=== PATIENT | female | born 1990 | race African-American/Black ===

== ENCOUNTER 2022-07-03 16:08 | Emergency (ER) | payer MEDICAID ==
[~2022-07-03] VITALS: Ht 121.9 cm; Wt 45.0 kg
[2022-07-03 16:59] LABS: BASOPHILS % 0.4 % (0.0-2.0); EOSINOPHILS % 0.1 % (0.0-5.0); HEMATOCRIT. 36.3 % (36.0-48.0); LYMPHOCYTES % 25.7 % (20.0-50.0); MEAN CORPUSCULAR HEMOGLOBIN 33.8 pg (28.0-32.0); MEAN CORPUSCULAR VOLUME 94.4 fL (81.0-99.0); MEAN PLATELET VOLUME 8.5 fl (7.4-10.4); MONOCYTES % 14.1 % (2.0-8.0); NEUTROPHILS % 59.7 % (40.0-76.0); PLATELET 146 x1000/uL (130-400); RED BLOOD CELL COUNT 3.84 mill/uL (4.2-5.4); RED CELL DISTRIBUTION WIDTH 13.3 % (11.6-14.6)
[2022-07-03 17:04] LABS: CHLORIDE 102 mEq/L (98-107)
[2022-07-03 17:12] LABS: ETHANOL BLOOD < 10 mg/dL
[2022-07-03] MEDS ORDERED: ALBUTEROL (0.5%) 2.5MG/0.5ML NEB HHN ONE (19:30)
[2022-07-03] MEDS ORDERED: ALBUTEROL (0.5%) 2.5MG/0.5ML NEB HHN NR (19:30)
[2022-07-03] MEDS ORDERED: AMLODIPINE 5MG TABLET PO ONE (20:00)
[2022-07-03 21:23] VITALS: BP 149/68
== END 2022-07-04 07:54 | disposition short-term general hospital (02) ==
LOC: ER 16:08
DX: R41.82 Altered mental status, unspecified (principal); I10 Essential (primary) hypertension; G80.9 Cerebral palsy, unspecified; R56.9 Unspecified convulsions; Z74.01 Bed confinement status; Z20.822 Contact with and (suspected) exposure to COVID-19
CPT/HCPCS: 36415; 70450; 71045; 80053; 80320; 82962; 85025; 87426; 93005; 94640; 99285; C9803; Z7610; G0480

== ENCOUNTER 2022-09-09 01:01 | Inpatient (IN) | payer MEDICAID ==
[2022-09-09] VITALS (48 sets, daily range): BP systolic 60–161; BP diastolic 42–106
[~2022-09-09] VITALS: Ht 116.8 cm; Wt 57.6 kg
[2022-09-09] MEDS ORDERED: ACETAMINOPHEN 650MG SUPP PR STA (01:22)
[2022-09-09] MEDS ORDERED: ETOMIDATE 2MG/ML 10ML VIAL IV ONE (01:30)
[2022-09-09] MEDS ORDERED: VANCOMYCIN 1G PREMIX 200 ML IV ONE (01:30)
[2022-09-09] MEDS ORDERED: PROPOFOL 10MG/ML 100ML 100 ML IV ONE (01:30)
[2022-09-09] MEDS ORDERED: PIPERACILLIN/TAZ 3.375G PREMIX 50 ML IV ONE (01:30)
[2022-09-09] MEDS ORDERED: SUCCINYLCHOLINE CHLORIDE 200MG/10ML IV ONE (01:30)
[2022-09-09] MEDS ORDERED: SODIUM CHLORIDE 0.9% 1000ML BAG (SEPSIS BOLUS) IV ONE (01:30)
[2022-09-09 04:53] LABS: HEMATOCRIT. 40.5 % (36.0-48.0); MEAN CORPUSCULAR HEMOGLOBIN 33.2 pg (28.0-32.0); MEAN CORPUSCULAR VOLUME 95.8 fL (81.0-99.0); MEAN PLATELET VOLUME 10.1 fl (7.4-10.4); PLATELET 202 x1000/uL (130-400); RED BLOOD CELL COUNT 4.22 mill/uL (4.2-5.4); RED CELL DISTRIBUTION WIDTH 13.5 % (11.6-14.6)
[2022-09-09 05:02] LABS: CHLORIDE 112 mEq/L (98-107)
[2022-09-09 05:27] LABS: INR 1.2
[2022-09-09 06:13] LABS: CLARITY URINE CLEAR (CLEAR); COLOR URINE ORANGE (YELLOW); KETONES URINE NEGATIVE (NEGATIVE); LEUKOCYTE ESTERASE URINE 1+ (NEGATIVE); NITRITE URINE POSITIVE (NEGATIVE); OCCULT BLOOD URINE NEGATIVE (NEGATIVE); PROTEIN URINE 2+ (NEGATIVE); SPECIFIC GRAVITY URINE 1.026 (1.005-1.030)
[2022-09-09 06:26] LABS: BG BASE EXCESS 7.3 mmol/L (-2.0-2.0); BG CARBOXYHEMOGLOBIN 0.8 % (0.5-1.5); BG DEOXYHEMOGLOBIN 5.4 % (0.0-5.0); BG HCO3 ACT 30.6 mmol/L (22.0-26.0); BG METHEMOGLOBIN 0.3 % (0.0-1.5); BG OXYGEN SATURATION 94.5 % (92.0-98.5); BG OXYHEMOGLOBIN 93.5 % (94.0-97.0); BG PCO2 38.6 mmHg (35.0-45.0); BG PH 7.517 (7.350-7.450); BG PO2 69.4 mmHg (75.0-100.0); BG TOTAL HEMOGLOBIN 14.6 g/dL (12.0-18.0)
[2022-09-09 07:13] LABS: PLATELET ESTIMATE NORMAL
[2022-09-09] MEDS ORDERED: ONDANSETRON HCL 4MG/2ML INJ IV PRN (09:45)
[2022-09-09] MEDS ORDERED: IPRATROPIUM/ALBUTEROL 0.5-3(2.5)MG/3ML NEB HHN PRN (09:45)
[2022-09-09] MEDS ORDERED: LIDOCAINE HCL 1% 10 MG/ML 10ML VIAL ONE (09:51)
[2022-09-09] MEDS ORDERED: PIPERACILLIN/TAZOBACTAM 3.375 G in DEXTROSE 5% WATER 50 ML IV NR (11:00)
[2022-09-09] MEDS ORDERED: KEPPSOL MT (11:36)
[2022-09-09] MEDS ORDERED: OMEP40CA20 PO (11:36)
[2022-09-09] MEDS ORDERED: TIZA-204 MT (11:36)
[2022-09-09] MEDS ORDERED: LISI-186 PO (11:36)
[2022-09-09] MEDS ORDERED: LACT10SO6 MT (11:36)
[2022-09-09] MEDS ORDERED: PHEN20EL PO (11:36)
[2022-09-09] MEDS ORDERED: CARB15DR EACHEYE (11:36)
[2022-09-09] MEDS ORDERED: MONT10TA21 PO (11:36)
[2022-09-09] MEDS ORDERED: DIAZ5TAB4 MT (11:36)
[2022-09-09] MEDS ORDERED: ALBU4TAB6 MT (11:36)
[2022-09-09] MEDS: PIPERACILLIN/TAZOBACTAM 3.375 G in DEXTROSE 5% WATER 50 ML IV SCH ×4 (11:59→22:50)
[2022-09-09] MEDS: VANCOMYCIN 750MG PREMIX 150 ML IV SCH ×2 (12:43→20:34)
[2022-09-09] MEDS: ACETAMINOPHEN 325MG TABLET PO PRN (13:19)
[2022-09-09] MEDS ORDERED: FENTANYL 2500MCG/250ML PMX 250 ML IV PRN (15:00)
[2022-09-09] MEDS ORDERED: DEXTROSE 50% WATER 50ML SYRINGE IV PRN (15:15)
[2022-09-09] MEDS ORDERED: DIAZEPAM 5 MG TABLET PEG PRN (15:15)
[2022-09-09] MEDS ORDERED: MEDICATION NOT ON FORMULARY EA (Lactulose 15 ML) MT PRN (15:15)
[2022-09-09] MEDS: LEVETIRACETAM 500MG/5ML CUP PEG SCH ×2 (15:38→16:41)
[2022-09-09] MEDS: PROPOFOL 10MG/ML 100ML 100 ML IV PRN (15:40)
[2022-09-09] MEDS: ACETAMINOPHEN 650MG/20.3ML UDC PO PRN (16:25)
[2022-09-09] MEDS: TIZANIDINE HCL 2MG TABLET PO SCH (16:42)
[2022-09-09] MEDS ORDERED: MEDICATION NOT ON FORMULARY EA (Tizanidine Hcl 1 TAB) MT SCH (17:00)
[2022-09-09] MEDS ORDERED: CARBOXYMETHYLCELLULOSE SODIUM EACHEYE SCH (17:00)
[2022-09-09] MEDS ORDERED: ALBUTEROL SULFATE MT SCH (17:00)
[2022-09-09] MEDS ORDERED: KCL 20MEQ/100ML PREMIX 100 ML IV NR (17:30)
[2022-09-09] MEDS: INSULIN LISPRO 100 UNITS/ML SUBCUT SCH (17:32)
[2022-09-09] MEDS ORDERED: ENOXAPARIN 40MG/0.4ML SYR SUBCUT SCH (18:00)
[2022-09-09 18:16] LABS: HCG SCREEN NEGATIVE
[2022-09-09] MEDS: PHENYLEPHRINE 100 MG in DEXT 5% WATER 240 ML IV PRN (18:23)
[2022-09-09] MEDS: BLOOD SUGAR DIAGNOSTIC STRIP TEST SCH (18:26)
[2022-09-09 18:30] LABS: PHOSPHORUS 1.6 mg/dL (2.5-4.9); T4 FREE 1.23 ng/dL (0.76-1.46)
[2022-09-09] MEDS: POLYVINYL ALCOHOL OPHTH DROPS 15ML EACHEYE SCH ×2 (18:42→20:34)
[2022-09-09] MEDS: MONTELUKAST SODIUM 10MG TABLET PO SCH (18:44)
[2022-09-09] MEDS: IPRATROPIUM/ALBUTEROL 0.5-3(2.5)MG/3ML NEB HHN SCH (21:00)
[2022-09-09] MEDS: PHENOBARBITAL ELIXIR 30 MG/7.5ML UDC PO SCH (22:51)
[2022-09-10] VITALS (96 sets, daily range): BP systolic 71–161; BP diastolic 41–111
[2022-09-10] MEDS: IPRATROPIUM/ALBUTEROL 0.5-3(2.5)MG/3ML NEB HHN SCH ×3 (00:13→20:39)
[2022-09-10] MEDS: BLOOD SUGAR DIAGNOSTIC STRIP TEST SCH ×4 (00:26→18:00)
[2022-09-10] MEDS: VANCOMYCIN 750MG PREMIX 150 ML IV SCH (04:45)
[2022-09-10] MEDS: PROPOFOL 10MG/ML 100ML 100 ML IV PRN ×3 (04:45→15:15)
[2022-09-10 05:00] LABS: BASOPHILS % 0.1 % (0.0-2.0); EOSINOPHILS % 0.9 % (0.0-5.0); HEMOGLOBIN. 11.6 g/dL (12.0-16.0); LYMPHOCYTES % 9.8 % (20.0-50.0); MEAN CORPUSCULAR VOLUME 96.7 fL (81.0-99.0); MEAN PLATELET VOLUME 10.2 fl (7.4-10.4); MONOCYTES % 5.6 % (2.0-8.0); NEUTROPHILS % 83.6 % (40.0-76.0); PLATELET 76 x1000/uL (130-400); RED BLOOD CELL COUNT 3.52 mill/uL (4.2-5.4); RED CELL DISTRIBUTION WIDTH 13.5 % (11.6-14.6)
[2022-09-10 05:05] LABS: CHLORIDE 114 mEq/L (98-107)
[2022-09-10 05:12] LABS: PHOSPHORUS 1.8 mg/dL (2.5-4.9)
[2022-09-10] MEDS: INSULIN LISPRO 100 UNITS/ML SUBCUT SCH ×4 (06:00→18:00)
[2022-09-10] MEDS: PHENOBARBITAL ELIXIR 30 MG/7.5ML UDC PO SCH ×3 (06:01→22:13)
[2022-09-10] MEDS: PIPERACILLIN/TAZOBACTAM 3.375 G in DEXTROSE 5% WATER 50 ML IV SCH (06:01)
[2022-09-10] MEDS ORDERED: PANTOPRAZOLE 40MG DR TABLET PO SCH (08:30)
[2022-09-10 09:26] LABS: BG BASE EXCESS 7.8 mmol/L (-2.0-2.0); BG CARBOXYHEMOGLOBIN 0.3 % (0.5-1.5); BG DEOXYHEMOGLOBIN 0.7 % (0.0-5.0); BG FRACTION INSPIRED OXYGEN 80; BG HCO3 ACT 32.5 mmol/L (22.0-26.0); BG METHEMOGLOBIN 0.1 % (0.0-1.5); BG OXYGEN SATURATION 99.3 % (92.0-98.5); BG OXYHEMOGLOBIN 98.9 % (94.0-97.0); BG PCO2 45.7 mmHg (35.0-45.0); BG PO2 279.4 mmHg (75.0-100.0); BG SAMPLE SITE LEFT RADIAL; BG TOTAL HEMOGLOBIN 13.1 g/dL (12.0-18.0); BG VENT MODE VENT - AC
[2022-09-10] MEDS: TIZANIDINE HCL 2MG TABLET PO SCH ×2 (09:38→19:10)
[2022-09-10] MEDS: METRONIDAZOLE 500MG TABLET PO SCH ×3 (09:38→21:24)
[2022-09-10] MEDS: LEVETIRACETAM 500MG/5ML CUP PEG SCH ×2 (09:38→19:09)
[2022-09-10] MEDS: LISINOPRIL 5MG TABLET PO SCH (09:39)
[2022-09-10] MEDS: CEFEPIME 1,000 MG in DEXTROSE 5% WATER 50 ML IV SCH ×2 (09:39→21:24)
[2022-09-10] MEDS: POLYVINYL ALCOHOL OPHTH DROPS 15ML EACHEYE SCH ×4 (09:45→21:33)
[2022-09-10] MEDS: POTASSIUM PHOS,M-BASIC-D-BASIC 20 MMOL in DEXT 5% WATER 243.3333 ML IV SCH ×2 (10:51→15:06)
[2022-09-10] MEDS: DOXYCYCLINE 100 MG in DEXT 5% WATER 100 ML IV SCH (12:30)
[2022-09-10] MEDS: MONTELUKAST SODIUM 10MG TABLET PO SCH (19:09)
[2022-09-10] MEDS: LACTULOSE 20G/30ML UDC PO PRN (19:09)
[2022-09-10] MEDS: LANSOPRAZOLE 30MG DR CAPSULE GT SCH (19:10)
[2022-09-10] MEDS: PHENYLEPHRINE 100 MG in DEXT 5% WATER 240 ML IV PRN (22:12)
[2022-09-11] VITALS (94 sets, daily range): BP systolic 79–174; BP diastolic 48–119
[2022-09-11] MEDS: DOXYCYCLINE 100 MG in DEXT 5% WATER 100 ML IV SCH ×2 (00:41→13:04)
[2022-09-11] MEDS: IPRATROPIUM/ALBUTEROL 0.5-3(2.5)MG/3ML NEB HHN SCH ×6 (01:13→20:46)
[2022-09-11 01:28] LABS: TOTAL IRON BINDING CAPACITY 150 ug/dL (250-450)
[2022-09-11 01:50] LABS: INR 1.1; PROTHROMBIN TIME 11.8 sec (9.6-11.0)
[2022-09-11 02:01] LABS: FERRITIN 436 ng/mL (10-291)
[2022-09-11 02:02] LABS: VITAMIN B12 SERUM >2000 pg/mL pg/mL (211-911)
[2022-09-11] MEDS: LANSOPRAZOLE 30MG DR CAPSULE GT SCH (05:26)
[2022-09-11] MEDS: PHENOBARBITAL ELIXIR 30 MG/7.5ML UDC PO SCH ×3 (05:26→21:10)
[2022-09-11] MEDS: METRONIDAZOLE 500MG TABLET PO SCH ×3 (05:26→21:10)
[2022-09-11] MEDS: INSULIN LISPRO 100 UNITS/ML SUBCUT SCH ×4 (05:26→17:59)
[2022-09-11] MEDS: BLOOD SUGAR DIAGNOSTIC STRIP TEST SCH ×4 (05:26→17:59)
[2022-09-11 05:59] LABS: CHLORIDE 111 mEq/L (98-107)
[2022-09-11 06:07] LABS: PHOSPHORUS 1.9 mg/dL (2.5-4.9)
[2022-09-11 08:29] LABS: BG BASE EXCESS 1.7 mmol/L (-2.0-2.0); BG DEOXYHEMOGLOBIN 1.1 % (0.0-5.0); BG FRACTION INSPIRED OXYGEN 60; BG HCO3 ACT 25.1 mmol/L (22.0-26.0); BG METHEMOGLOBIN 0.3 % (0.0-1.5); BG OXYGEN SATURATION 98.9 % (92.0-98.5); BG OXYHEMOGLOBIN 98.6 % (94.0-97.0); BG PCO2 35.3 mmHg (35.0-45.0); BG PO2 183.8 mmHg (75.0-100.0); BG SAMPLE SITE LEFT RADIAL; BG TOTAL HEMOGLOBIN 11.1 g/dL (12.0-18.0); BG VENT MODE VENT - AC
[2022-09-11] MEDS: POLYVINYL ALCOHOL OPHTH DROPS 15ML EACHEYE SCH ×4 (09:45→21:10)
[2022-09-11] MEDS: TIZANIDINE HCL 2MG TABLET PO SCH ×2 (09:46→16:09)
[2022-09-11] MEDS: LEVETIRACETAM 500MG/5ML CUP PEG SCH ×2 (09:46→16:09)
[2022-09-11] MEDS: CEFEPIME 1,000 MG in DEXTROSE 5% WATER 50 ML IV SCH ×2 (09:47→21:10)
[2022-09-11] MEDS: LISINOPRIL 5MG TABLET PO SCH (09:52)
[2022-09-11] MEDS: PROPOFOL 10MG/ML 100ML 100 ML IV PRN ×2 (09:53→23:27)
[2022-09-11] MEDS ORDERED: VANCOMYCIN 1G PREMIX 200 ML IV SCH (11:00)
[2022-09-11] MEDS: MONTELUKAST SODIUM 10MG TABLET PO SCH (18:01)
[2022-09-12] VITALS (94 sets, daily range): BP systolic 71–149; BP diastolic 20–107
[2022-09-12] MEDS: BLOOD SUGAR DIAGNOSTIC STRIP TEST SCH ×5 (00:11→23:22)
[2022-09-12] MEDS: DOXYCYCLINE 100 MG in DEXT 5% WATER 100 ML IV SCH ×3 (00:13→23:23)
[2022-09-12] MEDS: IPRATROPIUM/ALBUTEROL 0.5-3(2.5)MG/3ML NEB HHN SCH ×6 (00:55→21:41)
[2022-09-12 04:58] LABS: BASOPHILS % 0.2 % (0.0-2.0); EOSINOPHILS % 0.2 % (0.0-5.0); HEMATOCRIT. 27.9 % (36.0-48.0); HEMOGLOBIN. 9.8 g/dL (12.0-16.0); LYMPHOCYTES % 9.7 % (20.0-50.0); MEAN CORPUSCULAR HEMOGLOBIN 33.3 pg (28.0-32.0); MEAN CORPUSCULAR VOLUME 94.5 fL (81.0-99.0); MEAN PLATELET VOLUME 10.9 fl (7.4-10.4); MONOCYTES % 8.9 % (2.0-8.0); PLATELET 98 x1000/uL (130-400); RED BLOOD CELL COUNT 2.95 mill/uL (4.2-5.4)
[2022-09-12 05:06] LABS: CHLORIDE 107 mEq/L (98-107)
[2022-09-12 05:16] LABS: PHOSPHORUS 1.5 mg/dL (2.5-4.9)
[2022-09-12] MEDS: LANSOPRAZOLE 30MG DR CAPSULE GT SCH (05:23)
[2022-09-12] MEDS: METRONIDAZOLE 500MG TABLET PO SCH ×3 (05:23→21:20)
[2022-09-12] MEDS: PHENOBARBITAL ELIXIR 30 MG/7.5ML UDC PO SCH ×3 (05:23→21:20)
[2022-09-12] MEDS: INSULIN LISPRO 100 UNITS/ML SUBCUT SCH ×5 (05:24→23:22)
[2022-09-12] MEDS: TIZANIDINE HCL 2MG TABLET PO SCH ×2 (08:14→17:22)
[2022-09-12] MEDS: LISINOPRIL 5MG TABLET PO SCH (08:15)
[2022-09-12] MEDS: LEVETIRACETAM 500MG/5ML CUP PEG SCH ×2 (08:15→17:21)
[2022-09-12] MEDS: POLYVINYL ALCOHOL OPHTH DROPS 15ML EACHEYE SCH ×4 (08:16→21:20)
[2022-09-12] MEDS: METOPROLOL TARTRATE 25MG TABLET PO SCH ×2 (09:00→21:21)
[2022-09-12 09:13] LABS: BG BASE EXCESS 0.7 mmol/L (-2.0-2.0); BG CARBOXYHEMOGLOBIN 0.3 % (0.5-1.5); BG DEOXYHEMOGLOBIN 2.6 % (0.0-5.0); BG HCO3 ACT 24.1 mmol/L (22.0-26.0); BG METHEMOGLOBIN 0.3 % (0.0-1.5); BG OXYGEN SATURATION 97.4 % (92.0-98.5); BG OXYHEMOGLOBIN 96.8 % (94.0-97.0); BG PCO2 33.9 mmHg (35.0-45.0); BG PH 7.469 (7.350-7.450); BG PO2 91.9 mmHg (75.0-100.0); BG SAMPLE SITE LEFT RADIAL; BG TOTAL HEMOGLOBIN 10.7 g/dL (12.0-18.0); BG VENT MODE VENT - AC
[2022-09-12] MEDS: CEFEPIME 1,000 MG in DEXTROSE 5% WATER 50 ML IV SCH ×2 (09:53→21:22)
[2022-09-12] MEDS ORDERED: MAGNESIUM 2 G PREMIX 50 ML IV NR (11:00)
[2022-09-12] MEDS ORDERED: POTASSIUM PHOS,M-BASIC-D-BASIC 10 MMOL in DEXT 5% WATER 246.6667 ML IV NR (11:00)
[2022-09-12] MEDS: MONTELUKAST SODIUM 10MG TABLET PO SCH (18:36)
[2022-09-12] MEDS: ACETAMINOPHEN 325MG TABLET PO PRN (21:21)
[2022-09-13] VITALS (99 sets, daily range): BP systolic 67–154; BP diastolic 16–102
[2022-09-13] MEDS: IPRATROPIUM/ALBUTEROL 0.5-3(2.5)MG/3ML NEB HHN SCH ×6 (00:37→21:12)
[2022-09-13 04:44] LABS: CHLORIDE 102 mEq/L (98-107)
[2022-09-13 04:52] LABS: PHOSPHORUS 1.6 mg/dL (2.5-4.9)
[2022-09-13 04:56] LABS: BASOPHILS % 0.3 % (0.0-2.0); EOSINOPHILS % 0.1 % (0.0-5.0); HEMATOCRIT. 28.1 % (36.0-48.0); HEMOGLOBIN. 10.1 g/dL (12.0-16.0); LYMPHOCYTES % 10.7 % (20.0-50.0); MEAN CORPUSCULAR HEMOGLOBIN 33.3 pg (28.0-32.0); MEAN CORPUSCULAR VOLUME 92.5 fL (81.0-99.0); MEAN PLATELET VOLUME 10.7 fl (7.4-10.4); MONOCYTES % 11.8 % (2.0-8.0); NEUTROPHILS % 77.1 % (40.0-76.0); PLATELET 127 x1000/uL (130-400); RED BLOOD CELL COUNT 3.04 mill/uL (4.2-5.4); RED CELL DISTRIBUTION WIDTH 13.2 % (11.6-14.6)
[2022-09-13] MEDS: BLOOD SUGAR DIAGNOSTIC STRIP TEST SCH ×4 (05:32→23:09)
[2022-09-13] MEDS: INSULIN LISPRO 100 UNITS/ML SUBCUT SCH ×4 (05:32→23:09)
[2022-09-13] MEDS: PHENOBARBITAL ELIXIR 30 MG/7.5ML UDC PO SCH ×3 (05:32→21:15)
[2022-09-13] MEDS: METRONIDAZOLE 500MG TABLET PO SCH ×2 (05:32→13:09)
[2022-09-13] MEDS: TIZANIDINE HCL 2MG TABLET PO SCH ×2 (08:24→17:04)
[2022-09-13] MEDS: LEVETIRACETAM 500MG/5ML CUP PEG SCH ×2 (08:24→17:04)
[2022-09-13] MEDS: PANTOPRAZOLE SODIUM 40 MG/VIAL IV SCH (08:25)
[2022-09-13] MEDS: METOPROLOL TARTRATE 25MG TABLET PO SCH ×2 (08:25→21:00)
[2022-09-13] MEDS: ACETAMINOPHEN 650MG/20.3ML UDC PO PRN ×2 (08:25→17:04)
[2022-09-13] MEDS: POLYVINYL ALCOHOL OPHTH DROPS 15ML EACHEYE SCH ×4 (08:27→21:15)
[2022-09-13] MEDS: CEFEPIME 1,000 MG in DEXTROSE 5% WATER 50 ML IV SCH ×2 (08:51→21:15)
[2022-09-13] MEDS ORDERED: POTASSIUM PHOS,M-BASIC-D-BASIC 10 MMOL in DEXT 5% WATER 246.6667 ML IV NR (10:00)
[2022-09-13 10:25] LABS: BG BASE EXCESS 4.8 mmol/L (-2.0-2.0); BG CARBOXYHEMOGLOBIN 0.3 % (0.5-1.5); BG DEOXYHEMOGLOBIN 1.5 % (0.0-5.0); BG FRACTION INSPIRED OXYGEN 50; BG HCO3 ACT 27.2 mmol/L (22.0-26.0); BG METHEMOGLOBIN 0.3 % (0.0-1.5); BG OXYGEN SATURATION 98.5 % (92.0-98.5); BG OXYHEMOGLOBIN 97.9 % (94.0-97.0); BG PH 7.548 (7.350-7.450); BG SAMPLE SITE RIGHT RADIAL; BG TOTAL HEMOGLOBIN 9.3 g/dL (12.0-18.0); BG VENT MODE VENT - AC
[2022-09-13] MEDS: DOXYCYCLINE 100 MG in DEXT 5% WATER 100 ML IV SCH ×2 (11:22→23:09)
[2022-09-13] MEDS ORDERED: POTASSIUM CHLORIDE INJ 40 MEQ in DEXT 5% WATER 250 ML IV NR (16:00)
[2022-09-13] MEDS: MONTELUKAST SODIUM 10MG TABLET PO SCH (18:09)
[2022-09-14] VITALS (91 sets, daily range): BP systolic 78–152; BP diastolic 44–93
[2022-09-14 05:29] LABS: HEMATOCRIT. 31.5 % (36.0-48.0); HEMOGLOBIN. 11.3 g/dL (12.0-16.0); MEAN CORPUSCULAR HEMOGLOBIN 33.1 pg (28.0-32.0); MEAN PLATELET VOLUME 10.6 fl (7.4-10.4); PLATELET 178 x1000/uL (130-400); RED BLOOD CELL COUNT 3.42 mill/uL (4.2-5.4); RED CELL DISTRIBUTION WIDTH 13.2 % (11.6-14.6)
[2022-09-14] MEDS: INSULIN LISPRO 100 UNITS/ML SUBCUT SCH ×3 (05:39→18:00)
[2022-09-14] MEDS: PHENOBARBITAL ELIXIR 30 MG/7.5ML UDC PO SCH ×3 (05:39→23:08)
[2022-09-14] MEDS: BLOOD SUGAR DIAGNOSTIC STRIP TEST SCH ×3 (05:39→18:11)
[2022-09-14 05:47] LABS: CHLORIDE 99 mEq/L (98-107)
[2022-09-14 05:57] LABS: PHOSPHORUS 1.5 mg/dL (2.5-4.9)
[2022-09-14 08:29] LABS: BG BASE EXCESS 4.2 mmol/L (-2.0-2.0); BG CARBOXYHEMOGLOBIN 0.8 % (0.5-1.5); BG DEOXYHEMOGLOBIN 2.3 % (0.0-5.0); BG FRACTION INSPIRED OXYGEN 35; BG HCO3 ACT 26.2 mmol/L (22.0-26.0); BG METHEMOGLOBIN 0.2 % (0.0-1.5); BG OXYGEN SATURATION 97.7 % (92.0-98.5); BG OXYHEMOGLOBIN 96.7 % (94.0-97.0); BG PCO2 32.1 mmHg (35.0-45.0); BG PO2 96.7 mmHg (75.0-100.0); BG SAMPLE SITE LEFT RADIAL; BG TOTAL HEMOGLOBIN 15.5 g/dL (12.0-18.0); BG VENT MODE VENT - AC
[2022-09-14] MEDS: PANTOPRAZOLE SODIUM 40 MG/VIAL IV SCH (08:29)
[2022-09-14] MEDS: LEVETIRACETAM 500MG/5ML CUP PEG SCH ×2 (08:29→16:57)
[2022-09-14] MEDS: TIZANIDINE HCL 2MG TABLET PO SCH ×2 (08:29→16:57)
[2022-09-14] MEDS: METOPROLOL TARTRATE 25MG TABLET PO SCH (08:30)
[2022-09-14] MEDS ORDERED: MAGNESIUM 2 G PREMIX 50 ML IV NR (08:45)
[2022-09-14] MEDS: POLYVINYL ALCOHOL OPHTH DROPS 15ML EACHEYE SCH ×4 (08:47→23:09)
[2022-09-14] MEDS ORDERED: SODIUM PHOS,M-BASIC-D-BASIC 20 MM in DEXT 5% WATER 243.3333 ML IV NR (08:51)
[2022-09-14] MEDS: CEFEPIME 1,000 MG in DEXTROSE 5% WATER 50 ML IV SCH ×2 (09:26→23:08)
[2022-09-14] MEDS: PHENYLEPHRINE 100 MG in DEXT 5% WATER 240 ML IV PRN (10:01)
[2022-09-14] MEDS ORDERED: SODIUM CHLORIDE 0.9% 1,000 ML IV NR (11:15)
[2022-09-14] MEDS ORDERED: SODIUM CHLORIDE 0.9% 1,000 ML IV SCH (11:30)
[2022-09-14] MEDS: IPRATROPIUM/ALBUTEROL 0.5-3(2.5)MG/3ML NEB HHN SCH ×4 (11:46→23:51)
[2022-09-14 11:57] LABS: PLATELET ESTIMATE NORMAL
[2022-09-14] MEDS: DOXYCYCLINE 100 MG in DEXT 5% WATER 100 ML IV SCH (12:37)
[2022-09-14] MEDS: MONTELUKAST SODIUM 10MG TABLET PO SCH (18:21)
[2022-09-14] MEDS: ENOXAPARIN 40MG/0.4ML SYR SUBCUT SCH (18:21)
[2022-09-15] VITALS (71 sets, daily range): BP systolic 81–163; BP diastolic 48–107
[2022-09-15] MEDS: DOXYCYCLINE 100 MG in DEXT 5% WATER 100 ML IV SCH ×2 (00:49→12:37)
[2022-09-15] MEDS: BLOOD SUGAR DIAGNOSTIC STRIP TEST SCH ×5 (00:49→23:54)
[2022-09-15 05:50] LABS: HEMATOCRIT 29.6 % (36.0-48.0); HEMOGLOBIN 10.4 g/dL (12.0-16.0); MEAN CORPUSCULAR HEMOGLOBIN 32.9 pg (28.0-32.0); MEAN CORPUSCULAR VOLUME 93.2 fL (81.0-99.0); PLATELET 211 x1000/uL (130-400); RED BLOOD CELL COUNT 3.17 mill/uL (4.2-5.4); RED CELL DISTRIBUTION WIDTH 13.3 % (11.6-14.6)
[2022-09-15 05:54] LABS: CHLORIDE 101 mEq/L (98-107)
[2022-09-15] MEDS: INSULIN LISPRO 100 UNITS/ML SUBCUT SCH ×5 (06:00→23:54)
[2022-09-15 06:01] LABS: PHOSPHORUS 2.2 mg/dL (2.5-4.9)
[2022-09-15] MEDS: IPRATROPIUM/ALBUTEROL 0.5-3(2.5)MG/3ML NEB HHN SCH ×3 (08:30→20:25)
[2022-09-15] MEDS: ALBUTEROL 2MG TABLET GT SCH ×2 (09:00→17:00)
[2022-09-15] MEDS: TIZANIDINE HCL 2MG TABLET PO SCH ×2 (09:00→18:57)
[2022-09-15] MEDS: LEVETIRACETAM 500MG/5ML CUP PEG SCH (09:00)
[2022-09-15 09:23] LABS: BG BASE EXCESS 3.3 mmol/L (-2.0-2.0); BG CARBOXYHEMOGLOBIN 0.2 % (0.5-1.5); BG DEOXYHEMOGLOBIN 1.4 % (0.0-5.0); BG FRACTION INSPIRED OXYGEN 35; BG HCO3 ACT 25.5 mmol/L (22.0-26.0); BG METHEMOGLOBIN 0.3 % (0.0-1.5); BG OXYGEN SATURATION 98.6 % (92.0-98.5); BG OXYHEMOGLOBIN 98.1 % (94.0-97.0); BG PCO2 30.8 mmHg (35.0-45.0); BG PH 7.535 (7.350-7.450); BG SAMPLE SITE LEFT RADIAL; BG TOTAL HEMOGLOBIN 11.7 g/dL (12.0-18.0); BG VENT MODE VENT - AC
[2022-09-15] MEDS: PANTOPRAZOLE SODIUM 40 MG/VIAL IV SCH (09:41)
[2022-09-15] MEDS: CEFEPIME 1,000 MG in DEXTROSE 5% WATER 50 ML IV SCH (09:42)
[2022-09-15] MEDS: POLYVINYL ALCOHOL OPHTH DROPS 15ML EACHEYE SCH ×4 (09:43→21:20)
[2022-09-15] MEDS: LEVETIRACETAM 250 MG in SODIUM CHLORIDE 0.9% 100 ML IV SCH ×2 (10:51→21:20)
[2022-09-15] MEDS ORDERED: POTASSIUM PHOS,M-BASIC-D-BASIC 30 MMOL in SODIUM CHLORIDE 0.9% 500 ML IV NR (11:00)
[2022-09-15] MEDS ORDERED: MAGNESIUM 1 G PREMIX 100 ML IV NR (11:00)
[2022-09-15] MEDS ORDERED: DIATR MEGLU/DIATRIZOATE SOLN 30ML PEG NR (11:30)
[2022-09-15] MEDS ORDERED: DIATR MEGLU/DIATRIZOATE SOLN 30ML ONE (12:26)
[2022-09-15] MEDS: ENOXAPARIN 40MG/0.4ML SYR SUBCUT SCH (18:55)
[2022-09-15] MEDS: MONTELUKAST SODIUM 10MG TABLET PO SCH (21:20)
[2022-09-16] VITALS (68 sets, daily range): BP systolic 60–137; BP diastolic 29–104
[2022-09-16] MEDS: IPRATROPIUM/ALBUTEROL 0.5-3(2.5)MG/3ML NEB HHN SCH ×4 (00:18→20:14)
[2022-09-16] MEDS ORDERED: DILTIAZEM HCL 5MG/ML 5ML VIAL IV NR (02:45)
[2022-09-16] MEDS ORDERED: DILTIAZEM HCL 5MG/ML 5ML VIAL IV PRN (03:00)
[2022-09-16] MEDS ORDERED: SODIUM CHLORIDE 0.9% 1,000 ML IV SCH (03:00)
[2022-09-16] MEDS: INSULIN LISPRO 100 UNITS/ML SUBCUT SCH ×3 (06:00→18:00)
[2022-09-16 06:10] LABS: BASOPHILS % 0.4 % (0.0-2.0); EOSINOPHILS % 0.1 % (0.0-5.0); HEMATOCRIT. 27.6 % (36.0-48.0); HEMOGLOBIN. 9.7 g/dL (12.0-16.0); LYMPHOCYTES % 15.7 % (20.0-50.0); MEAN CORPUSCULAR HEMOGLOBIN 33.4 pg (28.0-32.0); MEAN CORPUSCULAR VOLUME 95.2 fL (81.0-99.0); MEAN PLATELET VOLUME 8.8 fl (7.4-10.4); MONOCYTES % 12.3 % (2.0-8.0); NEUTROPHILS % 71.5 % (40.0-76.0); PLATELET 234 x1000/uL (130-400); RED CELL DISTRIBUTION WIDTH 13.8 % (11.6-14.6)
[2022-09-16] MEDS: BLOOD SUGAR DIAGNOSTIC STRIP TEST SCH ×3 (06:15→16:51)
[2022-09-16 06:47] LABS: CHLORIDE 105 mEq/L (98-107)
[2022-09-16] MEDS: BISACODYL 10MG SUPP PR SCH (09:00)
[2022-09-16] MEDS: PANTOPRAZOLE SODIUM 40 MG/VIAL IV SCH (09:37)
[2022-09-16] MEDS: LEVETIRACETAM 250 MG in SODIUM CHLORIDE 0.9% 100 ML IV SCH ×2 (09:37→20:59)
[2022-09-16] MEDS: TIZANIDINE HCL 2MG TABLET PO SCH ×2 (09:37→18:17)
[2022-09-16] MEDS: METOPROLOL TARTRATE 25MG TABLET PO SCH ×2 (09:37→20:56)
[2022-09-16] MEDS: POLYVINYL ALCOHOL OPHTH DROPS 15ML EACHEYE SCH ×4 (09:38→20:56)
[2022-09-16 10:15] LABS: BG BASE EXCESS 1.9 mmol/L (-2.0-2.0); BG CARBOXYHEMOGLOBIN 0.3 % (0.5-1.5); BG DEOXYHEMOGLOBIN 3.1 % (0.0-5.0); BG HCO3 ACT 24.6 mmol/L (22.0-26.0); BG OXYGEN SATURATION 96.9 % (92.0-98.5); BG OXYHEMOGLOBIN 96.6 % (94.0-97.0); BG PCO2 32.3 mmHg (35.0-45.0); BG PH 7.499 (7.350-7.450); BG PO2 92.4 mmHg (75.0-100.0); BG SAMPLE SITE LEFT RADIAL; BG TOTAL HEMOGLOBIN 12.3 g/dL (12.0-18.0); BG VENT MODE VENT - AC
[2022-09-16] MEDS ORDERED: NALOXONE HCL 0.4MG/ML VIAL IV PRN (11:30)
[2022-09-16] MEDS ORDERED: DIAZEPAM 5 MG TABLET PO PRN (11:30)
[2022-09-16 16:21] LABS: PHOSPHORUS 2.8 mg/dL (2.5-4.9)
[2022-09-16] MEDS: PHENYLEPHRINE 100 MG in DEXT 5% WATER 240 ML IV PRN (16:29)
[2022-09-16] MEDS: ALBUTEROL 2MG TABLET GT SCH (17:00)
[2022-09-16] MEDS: MONTELUKAST SODIUM 10MG TABLET PO SCH (18:17)
[2022-09-16] MEDS: ENOXAPARIN 40MG/0.4ML SYR SUBCUT SCH (18:17)
[2022-09-17] VITALS (94 sets, daily range): BP systolic 81–160; BP diastolic 23–109
[2022-09-17] MEDS: IPRATROPIUM/ALBUTEROL 0.5-3(2.5)MG/3ML NEB HHN SCH ×7 (00:25→19:46)
[2022-09-17 05:43] LABS: HEMATOCRIT. 31.1 % (36.0-48.0); HEMOGLOBIN. 10.4 g/dL (12.0-16.0); MEAN CORPUSCULAR HEMOGLOBIN 32.3 pg (28.0-32.0); MEAN CORPUSCULAR VOLUME 96.3 fL (81.0-99.0); MEAN PLATELET VOLUME 9.1 fl (7.4-10.4); PLATELET 411 x1000/uL (130-400); RED BLOOD CELL COUNT 3.23 mill/uL (4.2-5.4); RED CELL DISTRIBUTION WIDTH 14.1 % (11.6-14.6)
[2022-09-17] MEDS: INSULIN LISPRO 100 UNITS/ML SUBCUT SCH ×4 (06:00→18:00)
[2022-09-17 06:01] LABS: CHLORIDE 104 mEq/L (98-107)
[2022-09-17] MEDS: BLOOD SUGAR DIAGNOSTIC STRIP TEST SCH ×4 (06:06→18:00)
[2022-09-17 06:50] LABS: PLATELET ESTIMATE INCREASED
[2022-09-17] MEDS: LORAZEPAM 2MG/ML CPJ IV PRN (06:55)
[2022-09-17] MEDS: PANTOPRAZOLE SODIUM 40 MG/VIAL IV SCH (08:16)
[2022-09-17] MEDS: BISACODYL 10MG SUPP PR SCH (08:16)
[2022-09-17] MEDS: POLYVINYL ALCOHOL OPHTH DROPS 15ML EACHEYE SCH ×4 (08:17→20:48)
[2022-09-17] MEDS: METOPROLOL TARTRATE 25MG TABLET PO SCH ×2 (08:17→20:48)
[2022-09-17 08:34] LABS: BG BASE EXCESS 5.6 mmol/L (-2.0-2.0); BG CARBOXYHEMOGLOBIN 0.5 % (0.5-1.5); BG DEOXYHEMOGLOBIN 1.8 % (0.0-5.0); BG FRACTION INSPIRED OXYGEN 35; BG METHEMOGLOBIN 0.3 % (0.0-1.5); BG OXYGEN SATURATION 98.2 % (92.0-98.5); BG OXYHEMOGLOBIN 97.4 % (94.0-97.0); BG PH 7.501 (7.350-7.450); BG PO2 109.8 mmHg (75.0-100.0); BG SAMPLE SITE LEFT RADIAL; BG TOTAL HEMOGLOBIN 11.2 g/dL (12.0-18.0); BG VENT MODE VENT - AC
[2022-09-17] MEDS: ALBUTEROL 2MG TABLET GT SCH (09:00)
[2022-09-17] MEDS: TIZANIDINE HCL 2MG TABLET PO SCH ×2 (09:06→16:00)
[2022-09-17] MEDS: LEVETIRACETAM 250 MG in SODIUM CHLORIDE 0.9% 100 ML IV SCH (09:06)
[2022-09-17] MEDS: PHENYLEPHRINE 100 MG in DEXT 5% WATER 240 ML IV PRN (13:12)
[2022-09-17] MEDS ORDERED: BISACODYL 10MG SUPP PR PRN (14:30)
[2022-09-17] MEDS: ENOXAPARIN 40MG/0.4ML SYR SUBCUT SCH (18:30)
[2022-09-17] MEDS: MONTELUKAST SODIUM 10MG TABLET PO SCH (20:47)
[2022-09-17] MEDS: LEVETIRACETAM 500MG/5ML CUP PEG SCH (20:48)
[2022-09-18] VITALS (97 sets, daily range): BP systolic 80–153; BP diastolic 45–102
[2022-09-18] MEDS: IPRATROPIUM/ALBUTEROL 0.5-3(2.5)MG/3ML NEB HHN SCH ×5 (00:36→20:41)
[2022-09-18] MEDS: LORAZEPAM 2MG/ML CPJ IV PRN (05:00)
[2022-09-18 05:24] LABS: BASOPHILS % 0.3 % (0.0-2.0); EOSINOPHILS % 0.1 % (0.0-5.0); HEMATOCRIT. 31.2 % (36.0-48.0); HEMOGLOBIN. 10.8 g/dL (12.0-16.0); LYMPHOCYTES % 18.9 % (20.0-50.0); MEAN CORPUSCULAR HEMOGLOBIN 33.3 pg (28.0-32.0); MEAN CORPUSCULAR VOLUME 96.2 fL (81.0-99.0); MEAN PLATELET VOLUME 8.2 fl (7.4-10.4); MONOCYTES % 8.7 % (2.0-8.0); PLATELET 380 x1000/uL (130-400); RED BLOOD CELL COUNT 3.24 mill/uL (4.2-5.4); RED CELL DISTRIBUTION WIDTH 14.2 % (11.6-14.6)
[2022-09-18 05:31] LABS: CHLORIDE 100 mEq/L (98-107)
[2022-09-18] MEDS: INSULIN LISPRO 100 UNITS/ML SUBCUT SCH ×5 (06:00→23:13)
[2022-09-18] MEDS: BLOOD SUGAR DIAGNOSTIC STRIP TEST SCH ×5 (06:30→23:13)
[2022-09-18] MEDS: ALBUTEROL 2MG TABLET GT SCH ×2 (09:00→17:00)
[2022-09-18 09:08] LABS: BG BASE EXCESS 1.3 mmol/L (-2.0-2.0); BG CARBOXYHEMOGLOBIN 0.1 % (0.5-1.5); BG DEOXYHEMOGLOBIN 2.7 % (0.0-5.0); BG HCO3 ACT 25.6 mmol/L (22.0-26.0); BG METHEMOGLOBIN 0.3 % (0.0-1.5); BG OXYGEN SATURATION 97.3 % (92.0-98.5); BG OXYHEMOGLOBIN 96.9 % (94.0-97.0); BG PCO2 39.3 mmHg (35.0-45.0); BG PH 7.432 (7.350-7.450); BG PO2 100.1 mmHg (75.0-100.0); BG SAMPLE SITE LEFT RADIAL; BG TOTAL HEMOGLOBIN 11.1 g/dL (12.0-18.0); BG VENT MODE VENT - AC
[2022-09-18] MEDS: LEVETIRACETAM 500MG/5ML CUP PEG SCH ×2 (09:23→20:33)
[2022-09-18] MEDS: PANTOPRAZOLE SODIUM 40 MG/VIAL IV SCH (09:23)
[2022-09-18] MEDS: TIZANIDINE HCL 2MG TABLET PO SCH ×2 (09:23→17:28)
[2022-09-18] MEDS: METOPROLOL TARTRATE 25MG TABLET PO SCH ×2 (09:25→20:33)
[2022-09-18] MEDS: POLYVINYL ALCOHOL OPHTH DROPS 15ML EACHEYE SCH ×4 (09:49→20:33)
[2022-09-18] MEDS: MORPHINE SULFATE 2 MG/ML CPJ (NOT FOR IM USE) IV PRN ×2 (09:50→17:30)
[2022-09-18 16:22] LABS: BG BASE EXCESS -1.1 mmol/L (-2.0-2.0); BG CARBOXYHEMOGLOBIN 0.3 % (0.5-1.5); BG DEOXYHEMOGLOBIN 2.5 % (0.0-5.0); BG FRACTION INSPIRED OXYGEN 30; BG HCO3 ACT 22.8 mmol/L (22.0-26.0); BG METHEMOGLOBIN 0.2 % (0.0-1.5); BG OXYGEN SATURATION 97.5 % (92.0-98.5); BG PCO2 34.7 mmHg (35.0-45.0); BG PH 7.435 (7.350-7.450); BG PO2 101.5 mmHg (75.0-100.0); BG SAMPLE SITE RIGHT RADIAL; BG TOTAL HEMOGLOBIN 9.9 g/dL (12.0-18.0); BG VENT MODE VENT - SIMV
[2022-09-18] MEDS: ENOXAPARIN 40MG/0.4ML SYR SUBCUT SCH (17:57)
[2022-09-18] MEDS: MONTELUKAST SODIUM 10MG TABLET PO SCH (17:58)
[2022-09-18] MEDS: PHENYLEPHRINE 100 MG in DEXT 5% WATER 240 ML IV PRN (17:58)
[2022-09-18] MEDS: ACETAMINOPHEN 650MG/20.3ML UDC PO PRN (20:33)
[2022-09-18] MEDS: DIPHENHYDRAMINE 50MG/ML VIAL IV PRN (20:34)
[2022-09-19] VITALS (89 sets, daily range): BP systolic 83–151; BP diastolic 28–111
[2022-09-19] MEDS: IPRATROPIUM/ALBUTEROL 0.5-3(2.5)MG/3ML NEB HHN SCH ×5 (00:42→23:43)
[2022-09-19] MEDS: DIPHENHYDRAMINE 50MG/ML VIAL IV PRN (03:11)
[2022-09-19 05:23] LABS: BASOPHILS % 0.3 % (0.0-2.0); EOSINOPHILS % 0.1 % (0.0-5.0); HEMATOCRIT. 27.5 % (36.0-48.0); HEMOGLOBIN. 9.4 g/dL (12.0-16.0); LYMPHOCYTES % 14.5 % (20.0-50.0); MEAN CORPUSCULAR HEMOGLOBIN 33.2 pg (28.0-32.0); MEAN CORPUSCULAR VOLUME 97.5 fL (81.0-99.0); MEAN PLATELET VOLUME 7.8 fl (7.4-10.4); MONOCYTES % 7.2 % (2.0-8.0); NEUTROPHILS % 77.9 % (40.0-76.0); PLATELET 242 x1000/uL (130-400); RED BLOOD CELL COUNT 2.82 mill/uL (4.2-5.4); RED CELL DISTRIBUTION WIDTH 14.6 % (11.6-14.6)
[2022-09-19 05:29] LABS: CHLORIDE 108 mEq/L (98-107)
[2022-09-19] MEDS: INSULIN LISPRO 100 UNITS/ML SUBCUT SCH ×3 (06:00→18:00)
[2022-09-19] MEDS: BLOOD SUGAR DIAGNOSTIC STRIP TEST SCH ×3 (06:50→18:30)
[2022-09-19] MEDS: MORPHINE SULFATE 2 MG/ML CPJ (NOT FOR IM USE) IV PRN ×3 (06:51→16:59)
[2022-09-19] MEDS: LEVETIRACETAM 500MG/5ML CUP PEG SCH ×2 (08:39→21:00)
[2022-09-19] MEDS: PANTOPRAZOLE SODIUM 40 MG/VIAL IV SCH (08:39)
[2022-09-19] MEDS: METOPROLOL TARTRATE 25MG TABLET PO SCH ×2 (08:40→21:00)
[2022-09-19] MEDS: TIZANIDINE HCL 2MG TABLET PO SCH ×2 (08:40→16:58)
[2022-09-19] MEDS: ALBUTEROL 2MG TABLET GT SCH ×4 (09:00→17:00)
[2022-09-19 13:27] LABS: BG BASE EXCESS 1.4 mmol/L (-2.0-2.0); BG CARBOXYHEMOGLOBIN 0.2 % (0.5-1.5); BG DEOXYHEMOGLOBIN 3.6 % (0.0-5.0); BG FRACTION INSPIRED OXYGEN 30; BG HCO3 ACT 25.1 mmol/L (22.0-26.0); BG METHEMOGLOBIN 0.2 % (0.0-1.5); BG OXYGEN SATURATION 96.4 % (92.0-98.5); BG PH 7.461 (7.350-7.450); BG PO2 83.4 mmHg (75.0-100.0); BG SAMPLE SITE LEFT RADIAL; BG TOTAL HEMOGLOBIN 9.2 g/dL (12.0-18.0); BG TOTAL RESPIRATORY RATE 42 b/min; BG VENT MODE VENT - SIMV
[2022-09-19] MEDS: POLYVINYL ALCOHOL OPHTH DROPS 15ML EACHEYE SCH ×4 (13:52→21:00)
[2022-09-19] MEDS: LORAZEPAM 2MG/ML CPJ IV PRN (16:56)
[2022-09-19] MEDS: MONTELUKAST SODIUM 10MG TABLET PO SCH (18:30)
[2022-09-19] MEDS: ENOXAPARIN 40MG/0.4ML SYR SUBCUT SCH (18:30)
[2022-09-20] VITALS (87 sets, daily range): BP systolic 75–157; BP diastolic 32–116
[2022-09-20] MEDS: MORPHINE SULFATE 2 MG/ML CPJ (NOT FOR IM USE) IV PRN ×2 (02:11→14:41)
[2022-09-20] MEDS: IPRATROPIUM/ALBUTEROL 0.5-3(2.5)MG/3ML NEB HHN SCH ×5 (04:10→20:29)
[2022-09-20 05:42] LABS: BASOPHILS % 0.4 % (0.0-2.0); EOSINOPHILS % 0.1 % (0.0-5.0); HEMATOCRIT. 26.5 % (36.0-48.0); HEMOGLOBIN. 9.3 g/dL (12.0-16.0); MEAN CORPUSCULAR HEMOGLOBIN 33.9 pg (28.0-32.0); MEAN CORPUSCULAR VOLUME 96.6 fL (81.0-99.0); MEAN PLATELET VOLUME 7.8 fl (7.4-10.4); NEUTROPHILS % 83.5 % (40.0-76.0); PLATELET 264 x1000/uL (130-400); RED BLOOD CELL COUNT 2.75 mill/uL (4.2-5.4); RED CELL DISTRIBUTION WIDTH 14.1 % (11.6-14.6)
[2022-09-20] MEDS: INSULIN LISPRO 100 UNITS/ML SUBCUT SCH ×4 (06:00→17:59)
[2022-09-20] MEDS: BLOOD SUGAR DIAGNOSTIC STRIP TEST SCH ×4 (06:00→17:59)
[2022-09-20 06:06] LABS: CHLORIDE 104 mEq/L (98-107)
[2022-09-20] MEDS: LEVETIRACETAM 500MG/5ML CUP PEG SCH ×2 (08:26→20:35)
[2022-09-20] MEDS: POLYVINYL ALCOHOL OPHTH DROPS 15ML EACHEYE SCH ×4 (08:26→20:37)
[2022-09-20] MEDS: PANTOPRAZOLE SODIUM 40 MG/VIAL IV SCH (08:26)
[2022-09-20] MEDS: METOPROLOL TARTRATE 25MG TABLET PO SCH ×2 (08:27→20:36)
[2022-09-20] MEDS: ALBUTEROL 2MG TABLET GT SCH ×4 (08:27→17:49)
[2022-09-20] MEDS: TIZANIDINE HCL 2MG TABLET PO SCH ×2 (11:25→17:49)
[2022-09-20] MEDS: LORAZEPAM 2MG/ML CPJ IV PRN (14:38)
[2022-09-20] MEDS: POLYETHYLENE GLYCOL 3350 (17GM) 1 DOSE PACK PO SCH (14:38)
[2022-09-20] MEDS: LACTULOSE 20G/30ML UDC PO PRN (17:49)
[2022-09-20] MEDS: ENOXAPARIN 40MG/0.4ML SYR SUBCUT SCH (18:02)
[2022-09-20] MEDS: MONTELUKAST SODIUM 10MG TABLET PO SCH (18:02)
[2022-09-20] MEDS: ACETAMINOPHEN 650MG/20.3ML UDC PO PRN (20:35)
[2022-09-21] VITALS (49 sets, daily range): BP systolic 95–171; BP diastolic 55–115
[2022-09-21] MEDS: BLOOD SUGAR DIAGNOSTIC STRIP TEST SCH ×4 (00:16→17:22)
[2022-09-21] MEDS: INSULIN LISPRO 100 UNITS/ML SUBCUT SCH ×4 (00:16→17:22)
[2022-09-21] MEDS: IPRATROPIUM/ALBUTEROL 0.5-3(2.5)MG/3ML NEB HHN SCH ×5 (00:37→20:22)
[2022-09-21] MEDS: MORPHINE SULFATE 2 MG/ML CPJ (NOT FOR IM USE) IV PRN (02:55)
[2022-09-21 04:11] LABS: BASOPHILS % 0.5 % (0.0-2.0); EOSINOPHILS % 0.1 % (0.0-5.0); HEMOGLOBIN. 10.1 g/dL (12.0-16.0); LYMPHOCYTES % 10.6 % (20.0-50.0); MEAN CORPUSCULAR VOLUME 97.1 fL (81.0-99.0); MEAN PLATELET VOLUME 7.2 fl (7.4-10.4); MONOCYTES % 6.2 % (2.0-8.0); NEUTROPHILS % 82.6 % (40.0-76.0); PLATELET 285 x1000/uL (130-400); RED BLOOD CELL COUNT 2.98 mill/uL (4.2-5.4); RED CELL DISTRIBUTION WIDTH 15.1 % (11.6-14.6)
[2022-09-21 04:42] LABS: CHLORIDE 107 mEq/L (98-107)
[2022-09-21] MEDS: LORAZEPAM 2MG/ML CPJ IV PRN ×2 (06:44→09:38)
[2022-09-21 08:36] LABS: BG BASE EXCESS 1.6 mmol/L (-2.0-2.0); BG CARBOXYHEMOGLOBIN 0.3 % (0.5-1.5); BG DEOXYHEMOGLOBIN 3.3 % (0.0-5.0); BG HCO3 ACT 24.7 mmol/L (22.0-26.0); BG METHEMOGLOBIN 0.3 % (0.0-1.5); BG OXYGEN SATURATION 96.7 % (92.0-98.5); BG OXYHEMOGLOBIN 96.1 % (94.0-97.0); BG PCO2 33.1 mmHg (35.0-45.0); BG PH 7.491 (7.350-7.450); BG PO2 87.2 mmHg (75.0-100.0); BG SAMPLE SITE LEFT RADIAL; BG TOTAL HEMOGLOBIN 9.2 g/dL (12.0-18.0); BG VENT MODE VENT - AC
[2022-09-21] MEDS: POLYVINYL ALCOHOL OPHTH DROPS 15ML EACHEYE SCH ×4 (08:54→21:28)
[2022-09-21] MEDS: PANTOPRAZOLE SODIUM 40 MG/VIAL IV SCH (08:55)
[2022-09-21] MEDS: ALBUTEROL 2MG TABLET GT SCH ×2 (08:55→16:12)
[2022-09-21] MEDS: LEVETIRACETAM 500MG/5ML CUP PEG SCH ×2 (08:55→21:00)
[2022-09-21] MEDS: POLYETHYLENE GLYCOL 3350 (17GM) 1 DOSE PACK PO SCH (08:56)
[2022-09-21] MEDS: METOPROLOL TARTRATE 25MG TABLET PO SCH ×2 (08:56→21:00)
[2022-09-21] MEDS: TIZANIDINE HCL 2MG TABLET PO SCH ×2 (08:57→16:12)
[2022-09-21] MEDS: DEXT 5%/0.45% NACL 1000ML 1,000 ML IV SCH ×2 (10:11→23:43)
[2022-09-21] MEDS: ENOXAPARIN 40MG/0.4ML SYR SUBCUT SCH (17:22)
[2022-09-21] MEDS: MONTELUKAST SODIUM 10MG TABLET PO SCH ×2 (19:30→19:38)
[2022-09-22] VITALS (39 sets, daily range): BP systolic 89–162; BP diastolic 49–110
[2022-09-22] MEDS: IPRATROPIUM/ALBUTEROL 0.5-3(2.5)MG/3ML NEB HHN SCH ×5 (00:08→20:32)
[2022-09-22] MEDS: BLOOD SUGAR DIAGNOSTIC STRIP TEST SCH ×3 (00:14→11:32)
[2022-09-22] MEDS: LORAZEPAM 2MG/ML CPJ IV PRN ×4 (00:57→15:41)
[2022-09-22 05:22] LABS: CHLORIDE 107 mEq/L (98-107)
[2022-09-22 05:39] LABS: BASOPHILS % 0.4 % (0.0-2.0); EOSINOPHILS % 0.2 % (0.0-5.0); HEMOGLOBIN. 8.7 g/dL (12.0-16.0); LYMPHOCYTES % 12.4 % (20.0-50.0); MEAN CORPUSCULAR HEMOGLOBIN 33.7 pg (28.0-32.0); MEAN CORPUSCULAR VOLUME 97.2 fL (81.0-99.0); MEAN PLATELET VOLUME 8.2 fl (7.4-10.4); MONOCYTES % 7.5 % (2.0-8.0); NEUTROPHILS % 79.5 % (40.0-76.0); PLATELET 246 x1000/uL (130-400); RED BLOOD CELL COUNT 2.57 mill/uL (4.2-5.4); RED CELL DISTRIBUTION WIDTH 14.9 % (11.6-14.6)
[2022-09-22] MEDS: INSULIN LISPRO 100 UNITS/ML SUBCUT SCH ×3 (06:00→11:32)
[2022-09-22] MEDS: PANTOPRAZOLE SODIUM 40 MG/VIAL IV SCH (08:23)
[2022-09-22] MEDS: LEVETIRACETAM 500MG/5ML CUP PEG SCH (08:24)
[2022-09-22] MEDS: TIZANIDINE HCL 2MG TABLET PO SCH ×2 (08:24→16:29)
[2022-09-22] MEDS: POLYETHYLENE GLYCOL 3350 (17GM) 1 DOSE PACK PO SCH (08:24)
[2022-09-22] MEDS: ALBUTEROL 2MG TABLET GT SCH ×2 (08:24→16:29)
[2022-09-22] MEDS: POLYVINYL ALCOHOL OPHTH DROPS 15ML EACHEYE SCH ×4 (08:25→21:37)
[2022-09-22] MEDS: METOPROLOL TARTRATE 25MG TABLET PO SCH ×2 (08:26→21:36)
[2022-09-22 08:55] LABS: BG BASE EXCESS 1.8 mmol/L (-2.0-2.0); BG CARBOXYHEMOGLOBIN 0.3 % (0.5-1.5); BG DEOXYHEMOGLOBIN 2.4 % (0.0-5.0); BG FRACTION INSPIRED OXYGEN 30; BG HCO3 ACT 25.2 mmol/L (22.0-26.0); BG METHEMOGLOBIN 0.4 % (0.0-1.5); BG OXYGEN SATURATION 97.6 % (92.0-98.5); BG OXYHEMOGLOBIN 96.9 % (94.0-97.0); BG PH 7.476 (7.350-7.450); BG PO2 99.4 mmHg (75.0-100.0); BG SAMPLE SITE LEFT RADIAL; BG TOTAL HEMOGLOBIN 9.6 g/dL (12.0-18.0); BG VENT MODE VENT - AC
[2022-09-22] MEDS: DEXT 5%/0.45% NACL 1000ML 1,000 ML IV SCH (13:12)
[2022-09-22] MEDS ORDERED: DIATR MEGLU/DIATRIZOATE SOLN 30ML ONE (16:22)
[2022-09-22] MEDS ORDERED: DIATR MEGLU/DIATRIZOATE SOLN 30ML PO NR (16:30)
[2022-09-22] MEDS: LEVETIRACETAM 750 MG in SODIUM CHLORIDE 0.9% 100 ML IV SCH (21:35)
[2022-09-23] VITALS (37 sets, daily range): BP systolic 83–157; BP diastolic 22–112
[2022-09-23] MEDS: IPRATROPIUM/ALBUTEROL 0.5-3(2.5)MG/3ML NEB HHN SCH ×4 (01:06→20:31)
[2022-09-23] MEDS: DEXT 5%/0.45% NACL 1000ML 1,000 ML IV SCH (04:40)
[2022-09-23] MEDS: LORAZEPAM 2MG/ML CPJ IV PRN ×2 (04:40→23:16)
[2022-09-23] MEDS: BLOOD SUGAR DIAGNOSTIC STRIP TEST SCH ×4 (06:00→17:21)
[2022-09-23 06:08] LABS: BASOPHILS % 0.6 % (0.0-2.0); EOSINOPHILS % 0.1 % (0.0-5.0); HEMATOCRIT. 29.7 % (36.0-48.0); HEMOGLOBIN. 10.2 g/dL (12.0-16.0); LYMPHOCYTES % 14.6 % (20.0-50.0); MEAN CORPUSCULAR HEMOGLOBIN 33.7 pg (28.0-32.0); MEAN CORPUSCULAR VOLUME 98.2 fL (81.0-99.0); MONOCYTES % 7.2 % (2.0-8.0); NEUTROPHILS % 77.5 % (40.0-76.0); RED BLOOD CELL COUNT 3.02 mill/uL (4.2-5.4); RED CELL DISTRIBUTION WIDTH 15.6 % (11.6-14.6)
[2022-09-23 06:14] LABS: CHLORIDE 104 mEq/L (98-107)
[2022-09-23] MEDS: INSULIN LISPRO 100 UNITS/ML SUBCUT SCH ×3 (07:00→17:21)
[2022-09-23] MEDS ORDERED: LIDOCAINE HCL 1%/EPI 1:200,000 30 ML VIAL ONE (07:22)
[2022-09-23] MEDS ORDERED: VECURONIUM BROMIDE 10 MG/VIAL IV ONE (08:28)
[2022-09-23] MEDS: ALBUTEROL 2MG TABLET GT SCH ×2 (09:00→17:00)
[2022-09-23] MEDS: METOPROLOL TARTRATE 25MG TABLET PO SCH ×2 (10:04→20:55)
[2022-09-23] MEDS: LEVETIRACETAM 750 MG in SODIUM CHLORIDE 0.9% 100 ML IV SCH ×2 (10:04→20:53)
[2022-09-23] MEDS: POLYETHYLENE GLYCOL 3350 (17GM) 1 DOSE PACK PO SCH (10:04)
[2022-09-23] MEDS: PANTOPRAZOLE SODIUM 40 MG/VIAL IV SCH (10:04)
[2022-09-23] MEDS: TIZANIDINE HCL 2MG TABLET PO SCH ×2 (10:04→17:25)
[2022-09-23] MEDS: POLYVINYL ALCOHOL OPHTH DROPS 15ML EACHEYE SCH ×4 (10:12→20:53)
[2022-09-23 11:32] LABS: PLATELET 298 x1000/uL (130-400)
[2022-09-23] MEDS: METOCLOPRAMIDE HCL 10MG/2ML VIAL IV SCH (17:25)
[2022-09-23] MEDS: ENOXAPARIN 40MG/0.4ML SYR SUBCUT SCH (17:26)
[2022-09-23] MEDS: MONTELUKAST SODIUM 10MG TABLET PO SCH (19:00)
[2022-09-24] VITALS (51 sets, daily range): BP systolic 95–169; BP diastolic 41–96
[2022-09-24] MEDS: METOCLOPRAMIDE HCL 10MG/2ML VIAL IV SCH ×4 (00:47→17:49)
[2022-09-24] MEDS: BLOOD SUGAR DIAGNOSTIC STRIP TEST SCH ×5 (00:47→23:59)
[2022-09-24] MEDS: IPRATROPIUM/ALBUTEROL 0.5-3(2.5)MG/3ML NEB HHN SCH ×6 (00:47→20:40)
[2022-09-24 05:37] LABS: HEMATOCRIT. 27.1 % (36.0-48.0); HEMOGLOBIN. 9.5 g/dL (12.0-16.0); MEAN CORPUSCULAR HEMOGLOBIN 33.5 pg (28.0-32.0); MEAN CORPUSCULAR VOLUME 95.9 fL (81.0-99.0); MEAN PLATELET VOLUME 7.5 fl (7.4-10.4); PLATELET 260 x1000/uL (130-400); RED BLOOD CELL COUNT 2.82 mill/uL (4.2-5.4); RED CELL DISTRIBUTION WIDTH 15.2 % (11.6-14.6)
[2022-09-24] MEDS: INSULIN LISPRO 100 UNITS/ML SUBCUT SCH ×4 (06:00→17:04)
[2022-09-24 06:09] LABS: CHLORIDE 103 mEq/L (98-107)
[2022-09-24] MEDS: LORAZEPAM 2MG/ML CPJ IV PRN (06:19)
[2022-09-24 07:55] LABS: PLATELET ESTIMATE NORMAL
[2022-09-24] MEDS: METOPROLOL TARTRATE 25MG TABLET PO SCH ×2 (08:02→21:01)
[2022-09-24] MEDS: POLYETHYLENE GLYCOL 3350 (17GM) 1 DOSE PACK PO SCH (08:02)
[2022-09-24] MEDS: PANTOPRAZOLE SODIUM 40 MG/VIAL IV SCH (08:02)
[2022-09-24] MEDS: TIZANIDINE HCL 2MG TABLET PO SCH ×2 (08:02→17:48)
[2022-09-24] MEDS: LEVETIRACETAM 750 MG in SODIUM CHLORIDE 0.9% 100 ML IV SCH ×2 (08:03→21:01)
[2022-09-24] MEDS: POLYVINYL ALCOHOL OPHTH DROPS 15ML EACHEYE SCH ×4 (08:03→21:01)
[2022-09-24] MEDS: KCL 20MEQ/100ML PREMIX 100 ML IV SCH ×2 (10:13→12:44)
[2022-09-24] MEDS: MONTELUKAST SODIUM 10MG TABLET PO SCH (17:48)
[2022-09-24] MEDS: ENOXAPARIN 40MG/0.4ML SYR SUBCUT SCH (17:48)
[2022-09-25] VITALS (21 sets, daily range): BP systolic 86–158; BP diastolic 43–101
[2022-09-25] MEDS: LORAZEPAM 2MG/ML CPJ IV PRN ×3 (00:15→06:58)
[2022-09-25] MEDS: METOCLOPRAMIDE HCL 10MG/2ML VIAL IV SCH ×4 (00:15→17:14)
[2022-09-25] MEDS: IPRATROPIUM/ALBUTEROL 0.5-3(2.5)MG/3ML NEB HHN SCH ×4 (00:33→12:51)
[2022-09-25] MEDS: BLOOD SUGAR DIAGNOSTIC STRIP TEST SCH ×3 (05:34→17:16)
[2022-09-25] MEDS: INSULIN LISPRO 100 UNITS/ML SUBCUT SCH ×4 (05:34→18:00)
[2022-09-25 08:10] LABS: BASOPHILS % 0.7 % (0.0-2.0); HEMATOCRIT. 31.2 % (36.0-48.0); HEMOGLOBIN. 10.2 g/dL (12.0-16.0); LYMPHOCYTES % 11.1 % (20.0-50.0); MEAN CORPUSCULAR VOLUME 100.7 fL (81.0-99.0); MONOCYTES % 8.6 % (2.0-8.0); NEUTROPHILS % 78.6 % (40.0-76.0); PLATELET 177 x1000/uL (130-400); RED BLOOD CELL COUNT 3.09 mill/uL (4.2-5.4); RED CELL DISTRIBUTION WIDTH 16.1 % (11.6-14.6)
[2022-09-25 08:27] LABS: CHLORIDE 107 mEq/L (98-107)
[2022-09-25] MEDS: POLYVINYL ALCOHOL OPHTH DROPS 15ML EACHEYE SCH ×4 (08:31→22:23)
[2022-09-25] MEDS: PANTOPRAZOLE SODIUM 40 MG/VIAL IV SCH (08:31)
[2022-09-25] MEDS: METOPROLOL TARTRATE 25MG TABLET PO SCH ×2 (08:35→21:55)
[2022-09-25] MEDS: POLYETHYLENE GLYCOL 3350 (17GM) 1 DOSE PACK PO SCH (08:36)
[2022-09-25] MEDS: TIZANIDINE HCL 2MG TABLET PO SCH ×2 (08:36→17:15)
[2022-09-25] MEDS: LEVETIRACETAM 750 MG in SODIUM CHLORIDE 0.9% 100 ML IV SCH ×2 (10:06→21:54)
[2022-09-25] MEDS: ENOXAPARIN 40MG/0.4ML SYR SUBCUT SCH (17:15)
[2022-09-25] MEDS: IPRATROPIUM BROMIDE (0.02%) 0.5MG/2.5ML NEB HHN SCH (21:23)
[2022-09-25] MEDS: MONTELUKAST SODIUM 10MG TABLET PO SCH (21:53)
[2022-09-26] VITALS (10 sets, daily range): BP systolic 124–153; BP diastolic 79–96
[2022-09-26] MEDS: LORAZEPAM 2MG/ML CPJ IV PRN ×2 (00:38→22:58)
[2022-09-26] MEDS: METOCLOPRAMIDE HCL 10MG/2ML VIAL IV SCH ×4 (00:53→17:44)
[2022-09-26] MEDS: IPRATROPIUM BROMIDE (0.02%) 0.5MG/2.5ML NEB HHN SCH ×4 (02:36→19:28)
[2022-09-26] MEDS: INSULIN LISPRO 100 UNITS/ML SUBCUT SCH ×4 (06:00→17:36)
[2022-09-26] MEDS: BLOOD SUGAR DIAGNOSTIC STRIP TEST SCH ×4 (06:39→17:37)
[2022-09-26] MEDS: POLYETHYLENE GLYCOL 3350 (17GM) 1 DOSE PACK PO SCH (08:50)
[2022-09-26] MEDS: TIZANIDINE HCL 2MG TABLET PO SCH ×2 (08:50→17:36)
[2022-09-26] MEDS: PANTOPRAZOLE SODIUM 40 MG/VIAL IV SCH (08:52)
[2022-09-26] MEDS: METOPROLOL TARTRATE 25MG TABLET PO SCH ×2 (08:52→22:57)
[2022-09-26] MEDS: LEVETIRACETAM 750 MG in SODIUM CHLORIDE 0.9% 100 ML IV SCH ×2 (08:52→22:56)
[2022-09-26] MEDS: POLYVINYL ALCOHOL OPHTH DROPS 15ML EACHEYE SCH ×4 (08:53→22:56)
[2022-09-26 09:10] LABS: CHLORIDE 102 mEq/L (98-107)
[2022-09-26 09:14] LABS: HEMOGLOBIN. 10.1 g/dL (12.0-16.0); MEAN CORPUSCULAR HEMOGLOBIN 32.9 pg (28.0-32.0); MEAN CORPUSCULAR VOLUME 94.8 fL (81.0-99.0); MEAN PLATELET VOLUME 7.1 fl (7.4-10.4); PLATELET 282 x1000/uL (130-400); RED BLOOD CELL COUNT 3.06 mill/uL (4.2-5.4); RED CELL DISTRIBUTION WIDTH 14.5 % (11.6-14.6)
[2022-09-26 14:37] LABS: PLATELET ESTIMATE NORMAL
[2022-09-26] MEDS: ENOXAPARIN 40MG/0.4ML SYR SUBCUT SCH (17:35)
[2022-09-26] MEDS: MONTELUKAST SODIUM 10MG TABLET PO SCH (23:01)
[2022-09-27] VITALS (12 sets, daily range): BP systolic 116–156; BP diastolic 74–102
[2022-09-27] MEDS: BLOOD SUGAR DIAGNOSTIC STRIP TEST SCH ×5 (00:27→23:51)
[2022-09-27] MEDS: METOCLOPRAMIDE HCL 10MG/2ML VIAL IV SCH ×5 (00:50→23:48)
[2022-09-27] MEDS: IPRATROPIUM BROMIDE (0.02%) 0.5MG/2.5ML NEB HHN SCH ×4 (01:50→21:15)
[2022-09-27 05:53] LABS: CHLORIDE 106 mEq/L (98-107)
[2022-09-27] MEDS: INSULIN LISPRO 100 UNITS/ML SUBCUT SCH ×5 (06:00→23:51)
[2022-09-27 08:25] LABS: HEMATOCRIT. 30.1 % (36.0-48.0); HEMOGLOBIN. 10.1 g/dL (12.0-16.0); MEAN CORPUSCULAR VOLUME 94.9 fL (81.0-99.0); RED BLOOD CELL COUNT 3.17 mill/uL (4.2-5.4); RED CELL DISTRIBUTION WIDTH 14.4 % (11.6-14.6)
[2022-09-27] MEDS: LEVETIRACETAM 750 MG in SODIUM CHLORIDE 0.9% 100 ML IV SCH ×2 (09:24→20:54)
[2022-09-27] MEDS: POLYVINYL ALCOHOL OPHTH DROPS 15ML EACHEYE SCH ×4 (09:24→20:02)
[2022-09-27] MEDS: POLYETHYLENE GLYCOL 3350 (17GM) 1 DOSE PACK PO SCH (09:24)
[2022-09-27] MEDS: PANTOPRAZOLE SODIUM 40 MG/VIAL IV SCH (09:25)
[2022-09-27] MEDS: METOPROLOL TARTRATE 25MG TABLET PO SCH ×2 (09:26→20:02)
[2022-09-27] MEDS: TIZANIDINE HCL 2MG TABLET PO SCH ×2 (09:27→17:00)
[2022-09-27 09:59] LABS: PLATELET ESTIMATE NORMAL
[2022-09-27] MEDS ORDERED: SODIUM CHLORIDE 0.9% 1,000 ML IV SCH (18:15)
[2022-09-27] MEDS: ENOXAPARIN 40MG/0.4ML SYR SUBCUT SCH (18:42)
[2022-09-27] MEDS: MONTELUKAST SODIUM 10MG TABLET PO SCH (19:00)
[2022-09-27] MEDS: AMLODIPINE 2.5MG TABLET PO SCH (20:03)
[2022-09-28] VITALS (10 sets, daily range): BP systolic 131–147; BP diastolic 80–108
[2022-09-28] MEDS: DEXT 5%/0.9% NACL 1,000 ML IV SCH ×2 (00:33→21:05)
[2022-09-28] MEDS: IPRATROPIUM BROMIDE (0.02%) 0.5MG/2.5ML NEB HHN SCH ×4 (01:12→21:20)
[2022-09-28] MEDS: METOCLOPRAMIDE HCL 10MG/2ML VIAL IV SCH ×3 (05:17→18:50)
[2022-09-28] MEDS: BLOOD SUGAR DIAGNOSTIC STRIP TEST SCH ×4 (05:18→23:50)
[2022-09-28] MEDS: INSULIN LISPRO 100 UNITS/ML SUBCUT SCH ×3 (05:18→18:00)
[2022-09-28] MEDS: METOPROLOL TARTRATE 25MG TABLET PO SCH ×2 (09:00→21:00)
[2022-09-28] MEDS: PANTOPRAZOLE SODIUM 40 MG/VIAL IV SCH (09:00)
[2022-09-28] MEDS: AMLODIPINE 2.5MG TABLET PO SCH (09:00)
[2022-09-28] MEDS: POLYETHYLENE GLYCOL 3350 (17GM) 1 DOSE PACK PO SCH (09:00)
[2022-09-28] MEDS: TIZANIDINE HCL 2MG TABLET PO SCH ×2 (09:00→17:00)
[2022-09-28] MEDS: LEVETIRACETAM 750 MG in SODIUM CHLORIDE 0.9% 100 ML IV SCH ×2 (10:21→21:05)
[2022-09-28] MEDS: POLYVINYL ALCOHOL OPHTH DROPS 15ML EACHEYE SCH ×4 (10:22→21:06)
[2022-09-28] MEDS: AMLODIPINE 5MG TABLET PO SCH ×2 (11:00→21:00)
[2022-09-28] MEDS: ENOXAPARIN 40MG/0.4ML SYR SUBCUT SCH (18:53)
[2022-09-28] MEDS: MONTELUKAST SODIUM 10MG TABLET PO SCH (19:00)
[2022-09-28] MEDS ORDERED: LORAZEPAM 2MG/ML CPJ IM PRN (23:45)
[2022-09-28] MEDS ORDERED: LORAZEPAM 2MG/ML CPJ IV PRN (23:45)
[2022-09-29] VITALS (13 sets, daily range): BP systolic 131–153; BP diastolic 79–106
[2022-09-29] MEDS ORDERED: LORAZEPAM 2MG/ML CPJ IV PRN
[2022-09-29] MEDS: IPRATROPIUM BROMIDE (0.02%) 0.5MG/2.5ML NEB HHN SCH ×4 (01:51→20:16)
[2022-09-29] MEDS: BLOOD SUGAR DIAGNOSTIC STRIP TEST SCH ×4 (05:39→23:50)
[2022-09-29] MEDS: INSULIN LISPRO 100 UNITS/ML SUBCUT SCH ×5 (05:48→23:59)
[2022-09-29] MEDS: METOCLOPRAMIDE HCL 10MG/2ML VIAL IV SCH ×5 (05:49→23:50)
[2022-09-29] MEDS: LORAZEPAM 2MG/ML CPJ IV PRN ×2 (05:57)
[2022-09-29 07:45] LABS: BASOPHILS % 0.6 % (0.0-2.0); EOSINOPHILS % 0.3 % (0.0-5.0); HEMATOCRIT. 28.2 % (36.0-48.0); HEMOGLOBIN. 9.8 g/dL (12.0-16.0); LYMPHOCYTES % 13.9 % (20.0-50.0); MEAN CORPUSCULAR HEMOGLOBIN 32.8 pg (28.0-32.0); MEAN CORPUSCULAR VOLUME 94.1 fL (81.0-99.0); MEAN PLATELET VOLUME 7.2 fl (7.4-10.4); MONOCYTES % 12.3 % (2.0-8.0); NEUTROPHILS % 72.9 % (40.0-76.0); PLATELET 217 x1000/uL (130-400)
[2022-09-29 08:01] LABS: CHLORIDE 109 mEq/L (98-107)
[2022-09-29] MEDS: PANTOPRAZOLE SODIUM 40 MG/VIAL IV SCH (08:45)
[2022-09-29] MEDS: POLYVINYL ALCOHOL OPHTH DROPS 15ML EACHEYE SCH ×4 (08:46→20:38)
[2022-09-29] MEDS: METOPROLOL TARTRATE 25MG TABLET PO SCH ×2 (09:00→20:26)
[2022-09-29] MEDS: TIZANIDINE HCL 2MG TABLET PO SCH ×2 (09:00→17:00)
[2022-09-29] MEDS: POLYETHYLENE GLYCOL 3350 (17GM) 1 DOSE PACK PO SCH (09:00)
[2022-09-29] MEDS: AMLODIPINE 5MG TABLET PO SCH ×2 (09:00→20:27)
[2022-09-29] MEDS: LEVETIRACETAM 750 MG in SODIUM CHLORIDE 0.9% 100 ML IV SCH ×2 (09:24→21:16)
[2022-09-29] MEDS: METOPROLOL TARTRATE 5MG/5ML VIAL IV SCH ×2 (11:24→17:16)
[2022-09-29] MEDS: KCL 20MEQ/100ML PREMIX 100 ML IV SCH ×2 (11:27→13:02)
[2022-09-29] MEDS: ENOXAPARIN 40MG/0.4ML SYR SUBCUT SCH (17:15)
[2022-09-29] MEDS: DEXT 5%/0.9% NACL 1,000 ML IV SCH (17:16)
[2022-09-29] MEDS: MONTELUKAST SODIUM 10MG TABLET PO SCH (18:16)
[2022-09-30] VITALS (12 sets, daily range): BP systolic 124–156; BP diastolic 80–107
[2022-09-30] MEDS: LORAZEPAM 2MG/ML CPJ IV PRN ×2 (01:22→16:13)
[2022-09-30] MEDS: IPRATROPIUM BROMIDE (0.02%) 0.5MG/2.5ML NEB HHN SCH ×4 (01:41→20:21)
[2022-09-30] MEDS: BLOOD SUGAR DIAGNOSTIC STRIP TEST SCH ×4 (05:15→23:25)
[2022-09-30] MEDS: METOCLOPRAMIDE HCL 10MG/2ML VIAL IV SCH ×4 (05:15→23:25)
[2022-09-30] MEDS: INSULIN LISPRO 100 UNITS/ML SUBCUT SCH ×4 (05:18→23:25)
[2022-09-30 05:40] LABS: BASOPHILS % 0.5 % (0.0-2.0); EOSINOPHILS % 0.4 % (0.0-5.0); HEMOGLOBIN. 10.1 g/dL (12.0-16.0); LYMPHOCYTES % 21.3 % (20.0-50.0); MEAN CORPUSCULAR HEMOGLOBIN 32.5 pg (28.0-32.0); MEAN CORPUSCULAR VOLUME 96.6 fL (81.0-99.0); MEAN PLATELET VOLUME 7.2 fl (7.4-10.4); MONOCYTES % 14.7 % (2.0-8.0); NEUTROPHILS % 63.1 % (40.0-76.0); PLATELET 188 x1000/uL (130-400); RED CELL DISTRIBUTION WIDTH 15.4 % (11.6-14.6)
[2022-09-30 07:00] LABS: CHLORIDE 105 mEq/L (98-107)
[2022-09-30] MEDS: PANTOPRAZOLE SODIUM 40 MG/VIAL IV SCH (08:40)
[2022-09-30] MEDS: METOPROLOL TARTRATE 5MG/5ML VIAL IV SCH ×2 (08:40→17:04)
[2022-09-30] MEDS: POLYVINYL ALCOHOL OPHTH DROPS 15ML EACHEYE SCH ×4 (08:41→20:41)
[2022-09-30] MEDS: METOPROLOL TARTRATE 25MG TABLET PO SCH (08:41)
[2022-09-30] MEDS: TIZANIDINE HCL 2MG TABLET PO SCH ×2 (08:42→17:04)
[2022-09-30] MEDS: POLYETHYLENE GLYCOL 3350 (17GM) 1 DOSE PACK PO SCH (08:42)
[2022-09-30] MEDS: AMLODIPINE 5MG TABLET PO SCH ×2 (08:42→20:43)
[2022-09-30] MEDS: LEVETIRACETAM 750 MG in SODIUM CHLORIDE 0.9% 100 ML IV SCH ×2 (09:42→20:46)
[2022-09-30] MEDS: DEXT 5%/0.9% NACL 1,000 ML IV SCH (12:04)
[2022-09-30] MEDS ORDERED: DIATR MEGLU/DIATRIZOATE SOLN 30ML PO NR (15:00)
[2022-09-30] MEDS ORDERED: DIATR MEGLU/DIATRIZOATE SOLN 30ML ONE (15:07)
[2022-09-30] MEDS: ENOXAPARIN 40MG/0.4ML SYR SUBCUT SCH (17:05)
[2022-09-30] MEDS: MONTELUKAST SODIUM 10MG TABLET PO SCH (18:07)
[2022-10-01] VITALS (13 sets, daily range): BP systolic 106–158; BP diastolic 55–112
[2022-10-01] MEDS: IPRATROPIUM BROMIDE (0.02%) 0.5MG/2.5ML NEB HHN SCH ×4 (01:37→20:34)
[2022-10-01] MEDS: METOPROLOL TARTRATE 5MG/5ML VIAL IV SCH ×2 (02:22→10:00)
[2022-10-01] MEDS: METOCLOPRAMIDE HCL 10MG/2ML VIAL IV SCH ×3 (05:31→17:35)
[2022-10-01] MEDS: BLOOD SUGAR DIAGNOSTIC STRIP TEST SCH ×3 (05:31→17:36)
[2022-10-01] MEDS: INSULIN LISPRO 100 UNITS/ML SUBCUT SCH ×3 (05:33→17:36)
[2022-10-01 06:11] LABS: CHLORIDE 108 mEq/L (98-107)
[2022-10-01 06:27] LABS: BASOPHILS % 0.5 % (0.0-2.0); EOSINOPHILS % 0.2 % (0.0-5.0); HEMOGLOBIN. 10.5 g/dL (12.0-16.0); LYMPHOCYTES % 13.3 % (20.0-50.0); MEAN CORPUSCULAR HEMOGLOBIN 32.2 pg (28.0-32.0); MEAN CORPUSCULAR VOLUME 95.2 fL (81.0-99.0); MEAN PLATELET VOLUME 7.1 fl (7.4-10.4); MONOCYTES % 13.5 % (2.0-8.0); NEUTROPHILS % 72.5 % (40.0-76.0); PLATELET 199 x1000/uL (130-400); RED BLOOD CELL COUNT 3.26 mill/uL (4.2-5.4); RED CELL DISTRIBUTION WIDTH 14.9 % (11.6-14.6)
[2022-10-01 08:59] LABS: BG BASE EXCESS 0.3 mmol/L (-2.0-2.0); BG DEOXYHEMOGLOBIN 2.4 % (0.0-5.0); BG FRACTION INSPIRED OXYGEN 30; BG HCO3 ACT 24.3 mmol/L (22.0-26.0); BG METHEMOGLOBIN 0.3 % (0.0-1.5); BG OXYGEN SATURATION 97.6 % (92.0-98.5); BG OXYHEMOGLOBIN 97.3 % (94.0-97.0); BG PCO2 36.7 mmHg (35.0-45.0); BG PH 7.438 (7.350-7.450); BG SAMPLE SITE LEFT RADIAL; BG VENT MODE VENT - AC
[2022-10-01] MEDS: TIZANIDINE HCL 2MG TABLET PO SCH ×2 (09:12→17:35)
[2022-10-01] MEDS: PANTOPRAZOLE SODIUM 40 MG/VIAL IV SCH (09:12)
[2022-10-01] MEDS: LEVETIRACETAM 750 MG in SODIUM CHLORIDE 0.9% 100 ML IV SCH ×2 (09:12→20:29)
[2022-10-01] MEDS: POLYETHYLENE GLYCOL 3350 (17GM) 1 DOSE PACK PO SCH (09:12)
[2022-10-01] MEDS: AMLODIPINE 5MG TABLET PO SCH (09:12)
[2022-10-01] MEDS: POLYVINYL ALCOHOL OPHTH DROPS 15ML EACHEYE SCH ×4 (09:13→20:29)
[2022-10-01] MEDS: DEXT 5%/0.9% NACL 1,000 ML IV SCH (09:13)
[2022-10-01] MEDS: ENOXAPARIN 40MG/0.4ML SYR SUBCUT SCH (17:35)
[2022-10-01] MEDS: METOPROLOL TARTRATE 25MG TABLET PO SCH (20:29)
[2022-10-01] MEDS: AMLODIPINE 5MG TABLET GT SCH (20:29)
[2022-10-02] VITALS (14 sets, daily range): BP systolic 85–150; BP diastolic 44–97
[2022-10-02] MEDS: METOCLOPRAMIDE HCL 10MG/2ML VIAL IV SCH ×5 (00:15→23:01)
[2022-10-02] MEDS: BLOOD SUGAR DIAGNOSTIC STRIP TEST SCH ×5 (00:15→23:01)
[2022-10-02] MEDS: MONTELUKAST SODIUM 10MG TABLET PO SCH ×2 (00:16→17:31)
[2022-10-02] MEDS: IPRATROPIUM BROMIDE (0.02%) 0.5MG/2.5ML NEB HHN SCH ×4 (00:44→20:10)
[2022-10-02] MEDS: DEXT 5%/0.9% NACL 1,000 ML IV SCH (05:12)
[2022-10-02] MEDS: INSULIN LISPRO 100 UNITS/ML SUBCUT SCH ×5 (05:12→23:01)
[2022-10-02 06:59] LABS: EOSINOPHILS % 0.3 % (0.0-5.0); HEMATOCRIT. 29.3 % (36.0-48.0); LYMPHOCYTES % 14.5 % (20.0-50.0); MEAN CORPUSCULAR HEMOGLOBIN 31.9 pg (28.0-32.0); MEAN CORPUSCULAR VOLUME 93.6 fL (81.0-99.0); MEAN PLATELET VOLUME 7.7 fl (7.4-10.4); MONOCYTES % 11.3 % (2.0-8.0); NEUTROPHILS % 72.9 % (40.0-76.0); PLATELET 217 x1000/uL (130-400); RED BLOOD CELL COUNT 3.13 mill/uL (4.2-5.4); RED CELL DISTRIBUTION WIDTH 14.8 % (11.6-14.6)
[2022-10-02 07:59] LABS: CHLORIDE 106 mEq/L (98-107)
[2022-10-02 08:55] LABS: BG BASE EXCESS 0.9 mmol/L (-2.0-2.0); BG CARBOXYHEMOGLOBIN 0.4 % (0.5-1.5); BG DEOXYHEMOGLOBIN 1.8 % (0.0-5.0); BG FRACTION INSPIRED OXYGEN 30; BG HCO3 ACT 24.3 mmol/L (22.0-26.0); BG METHEMOGLOBIN 0.3 % (0.0-1.5); BG OXYGEN SATURATION 98.2 % (92.0-98.5); BG OXYHEMOGLOBIN 97.5 % (94.0-97.0); BG PCO2 34.3 mmHg (35.0-45.0); BG PH 7.468 (7.350-7.450); BG SAMPLE SITE LEFT RADIAL; BG TOTAL HEMOGLOBIN 10.7 g/dL (12.0-18.0); BG VENT MODE VENT - AC
[2022-10-02] MEDS: PANTOPRAZOLE SODIUM 40 MG/VIAL IV SCH (10:04)
[2022-10-02] MEDS: AMLODIPINE 5MG TABLET GT SCH ×2 (10:05→20:20)
[2022-10-02] MEDS: METOPROLOL TARTRATE 25MG TABLET PO SCH ×2 (10:05→20:20)
[2022-10-02] MEDS: TIZANIDINE HCL 2MG TABLET PO SCH ×2 (10:05→17:31)
[2022-10-02] MEDS: POLYETHYLENE GLYCOL 3350 (17GM) 1 DOSE PACK PO SCH (10:06)
[2022-10-02] MEDS: LEVETIRACETAM 750 MG in SODIUM CHLORIDE 0.9% 100 ML IV SCH ×2 (10:06→20:18)
[2022-10-02] MEDS: POLYVINYL ALCOHOL OPHTH DROPS 15ML EACHEYE SCH ×4 (10:07→20:20)
[2022-10-02] MEDS: POTASSIUM CHLORIDE 20MEQ/PACKET PO SCH ×2 (13:16→17:31)
[2022-10-02] MEDS: ENOXAPARIN 40MG/0.4ML SYR SUBCUT SCH (17:30)
[2022-10-03] VITALS (12 sets, daily range): BP systolic 116–154; BP diastolic 57–84
[2022-10-03] MEDS: IPRATROPIUM BROMIDE (0.02%) 0.5MG/2.5ML NEB HHN SCH ×4 (01:54→21:03)
[2022-10-03 05:57] LABS: BASOPHILS % 0.4 % (0.0-2.0); EOSINOPHILS % 0.3 % (0.0-5.0); HEMATOCRIT. 31.7 % (36.0-48.0); HEMOGLOBIN. 10.8 g/dL (12.0-16.0); MEAN CORPUSCULAR VOLUME 93.7 fL (81.0-99.0); MEAN PLATELET VOLUME 7.5 fl (7.4-10.4); MONOCYTES % 12.1 % (2.0-8.0); NEUTROPHILS % 66.2 % (40.0-76.0); PLATELET 225 x1000/uL (130-400); RED BLOOD CELL COUNT 3.38 mill/uL (4.2-5.4); RED CELL DISTRIBUTION WIDTH 15.2 % (11.6-14.6)
[2022-10-03] MEDS: INSULIN LISPRO 100 UNITS/ML SUBCUT SCH ×4 (06:00→23:00)
[2022-10-03 06:10] LABS: CHLORIDE 106 mEq/L (98-107)
[2022-10-03] MEDS: METOCLOPRAMIDE HCL 10MG/2ML VIAL IV SCH ×4 (06:10→23:00)
[2022-10-03] MEDS: BLOOD SUGAR DIAGNOSTIC STRIP TEST SCH ×4 (06:10→23:00)
[2022-10-03] MEDS: POTASSIUM CHLORIDE 20MEQ/PACKET GT NR ×2 (07:50→08:12)
[2022-10-03] MEDS: TIZANIDINE HCL 2MG TABLET PO SCH ×2 (09:25→17:52)
[2022-10-03] MEDS: AMLODIPINE 5MG TABLET GT SCH ×2 (09:27→20:38)
[2022-10-03] MEDS: PANTOPRAZOLE SODIUM 40 MG/VIAL IV SCH (09:28)
[2022-10-03] MEDS: POLYETHYLENE GLYCOL 3350 (17GM) 1 DOSE PACK PO SCH (09:28)
[2022-10-03] MEDS: METOPROLOL TARTRATE 25MG TABLET GT SCH ×2 (09:28→20:38)
[2022-10-03] MEDS: LEVETIRACETAM 750 MG in SODIUM CHLORIDE 0.9% 100 ML IV SCH ×2 (09:28→21:16)
[2022-10-03 09:44] LABS: BG BASE EXCESS -0.1 mmol/L (-2.0-2.0); BG CARBOXYHEMOGLOBIN 0.2 % (0.5-1.5); BG DEOXYHEMOGLOBIN 1.4 % (0.0-5.0); BG FRACTION INSPIRED OXYGEN 35; BG HCO3 ACT 23.4 mmol/L (22.0-26.0); BG METHEMOGLOBIN 0.1 % (0.0-1.5); BG OXYGEN SATURATION 98.6 % (92.0-98.5); BG OXYHEMOGLOBIN 98.3 % (94.0-97.0); BG PH 7.455 (7.350-7.450); BG PO2 141.3 mmHg (75.0-100.0); BG SAMPLE SITE LEFT RADIAL; BG TOTAL HEMOGLOBIN 11.4 g/dL (12.0-18.0); BG VENT MODE VENT - AC
[2022-10-03] MEDS: POLYVINYL ALCOHOL OPHTH DROPS 15ML EACHEYE SCH ×4 (09:44→20:37)
[2022-10-03] MEDS: ENOXAPARIN 40MG/0.4ML SYR SUBCUT SCH (17:37)
[2022-10-03] MEDS: MONTELUKAST SODIUM 10MG TABLET PO SCH (18:01)
[2022-10-04] VITALS (12 sets, daily range): BP systolic 113–163; BP diastolic 55–98
[2022-10-04] MEDS: LORAZEPAM 2MG/ML CPJ IV PRN ×2 (02:10→22:21)
[2022-10-04] MEDS: IPRATROPIUM BROMIDE (0.02%) 0.5MG/2.5ML NEB HHN SCH ×5 (02:31→20:50)
[2022-10-04] MEDS: BLOOD SUGAR DIAGNOSTIC STRIP TEST SCH ×3 (05:03→17:12)
[2022-10-04] MEDS: INSULIN LISPRO 100 UNITS/ML SUBCUT SCH ×3 (05:03→17:12)
[2022-10-04] MEDS: METOCLOPRAMIDE HCL 10MG/2ML VIAL IV SCH ×3 (05:03→17:18)
[2022-10-04 06:57] LABS: BASOPHILS % 0.5 % (0.0-2.0); EOSINOPHILS % 0.2 % (0.0-5.0); HEMATOCRIT. 33.3 % (36.0-48.0); HEMOGLOBIN. 11.4 g/dL (12.0-16.0); LYMPHOCYTES % 16.5 % (20.0-50.0); MEAN CORPUSCULAR HEMOGLOBIN 32.2 pg (28.0-32.0); MEAN CORPUSCULAR VOLUME 93.7 fL (81.0-99.0); MEAN PLATELET VOLUME 7.2 fl (7.4-10.4); NEUTROPHILS % 71.8 % (40.0-76.0); PLATELET 272 x1000/uL (130-400); RED BLOOD CELL COUNT 3.55 mill/uL (4.2-5.4); RED CELL DISTRIBUTION WIDTH 14.9 % (11.6-14.6)
[2022-10-04 07:07] LABS: CHLORIDE 104 mEq/L (98-107)
[2022-10-04] MEDS: LEVETIRACETAM 750 MG in SODIUM CHLORIDE 0.9% 100 ML IV SCH ×2 (08:41→20:55)
[2022-10-04] MEDS: AMLODIPINE 5MG TABLET GT SCH ×2 (08:42→21:00)
[2022-10-04] MEDS: POLYVINYL ALCOHOL OPHTH DROPS 15ML EACHEYE SCH ×4 (08:43→20:58)
[2022-10-04] MEDS: POLYETHYLENE GLYCOL 3350 (17GM) 1 DOSE PACK PO SCH (08:43)
[2022-10-04] MEDS: PANTOPRAZOLE SODIUM 40 MG/VIAL IV SCH (08:43)
[2022-10-04] MEDS: TIZANIDINE HCL 2MG TABLET PO SCH ×2 (08:54→17:18)
[2022-10-04] MEDS: METOPROLOL TARTRATE 25MG TABLET GT SCH ×2 (08:54→21:00)
[2022-10-04 10:04] LABS: BG BASE EXCESS 3.2 mmol/L (-2.0-2.0); BG CARBOXYHEMOGLOBIN 0.4 % (0.5-1.5); BG DEOXYHEMOGLOBIN 1.1 % (0.0-5.0); BG FRACTION INSPIRED OXYGEN 40; BG HCO3 ACT 26.5 mmol/L (22.0-26.0); BG METHEMOGLOBIN 0.3 % (0.0-1.5); BG OXYGEN SATURATION 98.9 % (92.0-98.5); BG OXYHEMOGLOBIN 98.2 % (94.0-97.0); BG PCO2 35.3 mmHg (35.0-45.0); BG PH 7.493 (7.350-7.450); BG PO2 144.6 mmHg (75.0-100.0); BG SAMPLE SITE LEFT FEMORAL; BG TOTAL HEMOGLOBIN 10.7 g/dL (12.0-18.0); BG TOTAL RESPIRATORY RATE 12 b/min; BG VENT MODE VENT - SIMV
[2022-10-04] MEDS: ENOXAPARIN 40MG/0.4ML SYR SUBCUT SCH (17:18)
[2022-10-04] MEDS: DEXT 5%/LACTATED RINGERS 1,000 ML IV SCH (18:30)
[2022-10-04] MEDS: MONTELUKAST SODIUM 10MG TABLET PO SCH (19:00)
[2022-10-05] VITALS (12 sets, daily range): BP systolic 121–163; BP diastolic 66–98
[2022-10-05] MEDS: METOCLOPRAMIDE HCL 10MG/2ML VIAL IV SCH ×4 (00:35→18:21)
[2022-10-05] MEDS: LORAZEPAM 2MG/ML CPJ IV PRN ×2 (00:37→07:52)
[2022-10-05] MEDS: BLOOD SUGAR DIAGNOSTIC STRIP TEST SCH ×4 (00:47→18:19)
[2022-10-05] MEDS: IPRATROPIUM BROMIDE (0.02%) 0.5MG/2.5ML NEB HHN SCH ×4 (01:26→21:05)
[2022-10-05 05:43] LABS: BASOPHILS % 0.8 % (0.0-2.0); EOSINOPHILS % 0.1 % (0.0-5.0); HEMATOCRIT. 33.3 % (36.0-48.0); HEMOGLOBIN. 11.5 g/dL (12.0-16.0); LYMPHOCYTES % 16.6 % (20.0-50.0); MEAN CORPUSCULAR HEMOGLOBIN 32.3 pg (28.0-32.0); MEAN CORPUSCULAR VOLUME 93.8 fL (81.0-99.0); MONOCYTES % 10.2 % (2.0-8.0); NEUTROPHILS % 72.3 % (40.0-76.0); RED BLOOD CELL COUNT 3.55 mill/uL (4.2-5.4); RED CELL DISTRIBUTION WIDTH 14.7 % (11.6-14.6)
[2022-10-05] MEDS: INSULIN LISPRO 100 UNITS/ML SUBCUT SCH ×4 (06:00→18:00)
[2022-10-05] MEDS: DEXT 5%/LACTATED RINGERS 1,000 ML IV SCH ×2 (06:41→21:22)
[2022-10-05 07:01] LABS: CHLORIDE 106 mEq/L (98-107)
[2022-10-05 07:55] LABS: PLATELET 281 x1000/uL (130-400)
[2022-10-05] MEDS: HYDRALAZINE 20MG/ML VIAL IV PRN (07:59)
[2022-10-05] MEDS: METOPROLOL TARTRATE 25MG TABLET GT SCH (08:14)
[2022-10-05] MEDS: AMLODIPINE 5MG TABLET GT SCH ×2 (08:14→21:00)
[2022-10-05] MEDS: TIZANIDINE HCL 2MG TABLET PO SCH ×2 (08:15→17:00)
[2022-10-05] MEDS: POLYETHYLENE GLYCOL 3350 (17GM) 1 DOSE PACK PO SCH (08:15)
[2022-10-05] MEDS: POLYVINYL ALCOHOL OPHTH DROPS 15ML EACHEYE SCH ×4 (08:28→21:06)
[2022-10-05] MEDS: LEVETIRACETAM 750 MG in SODIUM CHLORIDE 0.9% 100 ML IV SCH ×2 (08:28→21:05)
[2022-10-05] MEDS: PANTOPRAZOLE SODIUM 40 MG/VIAL IV SCH (08:28)
[2022-10-05] MEDS: METOPROLOL TARTRATE 50MG TABLET GT SCH ×2 (09:00→21:00)
[2022-10-05] MEDS: METOPROLOL TARTRATE 5MG/5ML VIAL IV PRN ×2 (09:28→21:19)
[2022-10-05] MEDS: MONTELUKAST SODIUM 10MG TABLET PO SCH (18:19)
[2022-10-05] MEDS: ENOXAPARIN 40MG/0.4ML SYR SUBCUT SCH (18:22)
[2022-10-06] VITALS (12 sets, daily range): BP systolic 121–162; BP diastolic 60–94
[2022-10-06] MEDS: METOCLOPRAMIDE HCL 10MG/2ML VIAL IV SCH ×5 (00:03→23:13)
[2022-10-06] MEDS: METOPROLOL TARTRATE 5MG/5ML VIAL IV PRN ×2 (01:18→06:43)
[2022-10-06] MEDS: IPRATROPIUM BROMIDE (0.02%) 0.5MG/2.5ML NEB HHN SCH ×4 (02:05→20:27)
[2022-10-06] MEDS: BLOOD SUGAR DIAGNOSTIC STRIP TEST SCH ×5 (06:00→23:18)
[2022-10-06] MEDS: INSULIN LISPRO 100 UNITS/ML SUBCUT SCH ×5 (06:00→23:20)
[2022-10-06 06:09] LABS: INR 1.2; PROTHROMBIN TIME 12.4 sec (9.6-11.0)
[2022-10-06 06:16] LABS: BASOPHILS % 0.5 % (0.0-2.0); EOSINOPHILS % 0.1 % (0.0-5.0); HEMATOCRIT. 33.7 % (36.0-48.0); HEMOGLOBIN. 11.6 g/dL (12.0-16.0); LYMPHOCYTES % 9.8 % (20.0-50.0); MEAN CORPUSCULAR HEMOGLOBIN 32.1 pg (28.0-32.0); MEAN CORPUSCULAR VOLUME 93.1 fL (81.0-99.0); MEAN PLATELET VOLUME 7.7 fl (7.4-10.4); MONOCYTES % 7.8 % (2.0-8.0); NEUTROPHILS % 81.8 % (40.0-76.0); PLATELET 332 x1000/uL (130-400); RED BLOOD CELL COUNT 3.62 mill/uL (4.2-5.4); RED CELL DISTRIBUTION WIDTH 14.8 % (11.6-14.6)
[2022-10-06 06:41] LABS: CHLORIDE 102 mEq/L (98-107)
[2022-10-06] MEDS ORDERED: POTASSIUM CHLORIDE INJ 40 MEQ in DEXT 5% WATER 250 ML IV ONE (07:00)
[2022-10-06] MEDS: TIZANIDINE HCL 2MG TABLET PO SCH ×2 (09:00→20:22)
[2022-10-06] MEDS: METOPROLOL TARTRATE 50MG TABLET GT SCH (09:00)
[2022-10-06] MEDS: AMLODIPINE 5MG TABLET GT SCH (09:00)
[2022-10-06] MEDS: POLYETHYLENE GLYCOL 3350 (17GM) 1 DOSE PACK PO SCH (09:00)
[2022-10-06] MEDS: KCL 20MEQ/100ML X 2 FOR TOTAL KCL 40MEQ/200ML IV SCH ×2 (09:39→10:58)
[2022-10-06] MEDS: LEVETIRACETAM 750 MG in SODIUM CHLORIDE 0.9% 100 ML IV SCH ×2 (09:39→21:18)
[2022-10-06] MEDS: PANTOPRAZOLE SODIUM 40 MG/VIAL IV SCH (09:39)
[2022-10-06 09:44] LABS: BG BASE EXCESS -0.2 mmol/L (-2.0-2.0); BG CARBOXYHEMOGLOBIN 1.1 % (0.5-1.5); BG DEOXYHEMOGLOBIN 1.6 % (0.0-5.0); BG FRACTION INSPIRED OXYGEN 35; BG HCO3 ACT 23.8 mmol/L (22.0-26.0); BG METHEMOGLOBIN 0.3 % (0.0-1.5); BG OXYGEN SATURATION 98.4 % (92.0-98.5); BG PCO2 36.6 mmHg (35.0-45.0); BG PH 7.431 (7.350-7.450); BG PO2 115.8 mmHg (75.0-100.0); BG SAMPLE SITE LEFT RADIAL; BG TOTAL HEMOGLOBIN 12.4 g/dL (12.0-18.0); BG VENT MODE VENT - SIMV
[2022-10-06] MEDS: POLYVINYL ALCOHOL OPHTH DROPS 15ML EACHEYE SCH ×4 (09:59→20:24)
[2022-10-06] MEDS ORDERED: MAGNESIUM 2 G PREMIX 50 ML IV NR (10:30)
[2022-10-06] MEDS: METOPROLOL TARTRATE 5MG/5ML VIAL IV SCH ×3 (10:59→23:14)
[2022-10-06] MEDS: CEFAZOLIN 1000MG PREMIX 50 ML IV SCH ×2 (10:59→15:40)
[2022-10-06] MEDS: LORAZEPAM 2MG/ML CPJ IV PRN (15:41)
[2022-10-06] MEDS: DEXT 5%/LACTATED RINGERS 1,000 ML IV SCH (16:52)
[2022-10-06] MEDS: ENOXAPARIN 40MG/0.4ML SYR SUBCUT SCH (18:03)
[2022-10-06] MEDS: MONTELUKAST SODIUM 10MG TABLET PO SCH (20:22)
[2022-10-06] MEDS: AMLODIPINE 2.5MG TABLET GT SCH (20:38)
[2022-10-07] VITALS (17 sets, daily range): BP systolic 118–170; BP diastolic 57–99
[2022-10-07] MEDS: IPRATROPIUM BROMIDE (0.02%) 0.5MG/2.5ML NEB HHN SCH ×4 (00:22→20:28)
[2022-10-07] MEDS: LORAZEPAM 2MG/ML CPJ IV PRN ×3 (02:48→23:15)
[2022-10-07] MEDS: METOPROLOL TARTRATE 5MG/5ML VIAL IV SCH ×3 (04:54→18:38)
[2022-10-07] MEDS: METOCLOPRAMIDE HCL 10MG/2ML VIAL IV SCH ×4 (05:03→23:30)
[2022-10-07] MEDS: INSULIN LISPRO 100 UNITS/ML SUBCUT SCH ×3 (05:03→18:00)
[2022-10-07] MEDS: BLOOD SUGAR DIAGNOSTIC STRIP TEST SCH ×3 (05:03→18:39)
[2022-10-07 05:36] LABS: BASOPHILS % 0.3 % (0.0-2.0); EOSINOPHILS % 0.2 % (0.0-5.0); HEMATOCRIT. 32.7 % (36.0-48.0); MEAN CORPUSCULAR HEMOGLOBIN 31.8 pg (28.0-32.0); MEAN CORPUSCULAR VOLUME 94.6 fL (81.0-99.0); MEAN PLATELET VOLUME 7.4 fl (7.4-10.4); MONOCYTES % 10.4 % (2.0-8.0); NEUTROPHILS % 73.1 % (40.0-76.0); PLATELET 303 x1000/uL (130-400); RED BLOOD CELL COUNT 3.46 mill/uL (4.2-5.4); RED CELL DISTRIBUTION WIDTH 15.3 % (11.6-14.6)
[2022-10-07 05:59] LABS: CHLORIDE 107 mEq/L (98-107)
[2022-10-07] MEDS ORDERED: POTASSIUM CHLORIDE 20MEQ/PACKET PO NR (08:30)
[2022-10-07 09:00] LABS: BG CARBOXYHEMOGLOBIN 0.2 % (0.5-1.5); BG FRACTION INSPIRED OXYGEN 30; BG HCO3 ACT 23.2 mmol/L (22.0-26.0); BG METHEMOGLOBIN 0.1 % (0.0-1.5); BG OXYHEMOGLOBIN 98.7 % (94.0-97.0); BG PH 7.568 (7.350-7.450); BG PO2 149.6 mmHg (75.0-100.0); BG SAMPLE SITE LEFT RADIAL; BG TOTAL HEMOGLOBIN 11.4 g/dL (12.0-18.0); BG VENT MODE VENT - AC
[2022-10-07] MEDS: TIZANIDINE HCL 2MG TABLET PO SCH ×2 (09:17→18:59)
[2022-10-07] MEDS: AMLODIPINE 2.5MG TABLET GT SCH ×2 (09:17→21:04)
[2022-10-07] MEDS: PANTOPRAZOLE SODIUM 40 MG/VIAL IV SCH (09:17)
[2022-10-07] MEDS: LEVETIRACETAM 750 MG in SODIUM CHLORIDE 0.9% 100 ML IV SCH ×2 (09:18→23:52)
[2022-10-07] MEDS: POLYVINYL ALCOHOL OPHTH DROPS 15ML EACHEYE SCH ×3 (09:19→18:39)
[2022-10-07] MEDS: DEXT 5%/LACTATED RINGERS 1,000 ML IV SCH (09:19)
[2022-10-07] MEDS: POLYETHYLENE GLYCOL 3350 (17GM) 1 DOSE PACK PO SCH (10:20)
[2022-10-07] MEDS: HYDRALAZINE 20MG/ML VIAL IV PRN (12:04)
[2022-10-07] MEDS: ENOXAPARIN 40MG/0.4ML SYR SUBCUT SCH (18:39)
[2022-10-07] MEDS: MONTELUKAST SODIUM 10MG TABLET PO SCH (18:39)
[2022-10-08] VITALS (12 sets, daily range): BP systolic 127–167; BP diastolic 65–101
[2022-10-08] MEDS: METOPROLOL TARTRATE 5MG/5ML VIAL IV SCH ×3 (01:56→18:03)
[2022-10-08] MEDS: DEXT 5%/LACTATED RINGERS 1,000 ML IV SCH (01:56)
[2022-10-08] MEDS: LORAZEPAM 2MG/ML CPJ IV PRN (01:58)
[2022-10-08] MEDS: IPRATROPIUM BROMIDE (0.02%) 0.5MG/2.5ML NEB HHN SCH ×4 (02:12→21:29)
[2022-10-08] MEDS: METOCLOPRAMIDE HCL 10MG/2ML VIAL IV SCH ×3 (05:16→18:03)
[2022-10-08 05:57] LABS: CHLORIDE 105 mEq/L (98-107)
[2022-10-08 06:17] LABS: BASOPHILS % 0.3 % (0.0-2.0); EOSINOPHILS % 0.2 % (0.0-5.0); HEMATOCRIT. 31.3 % (36.0-48.0); HEMOGLOBIN. 10.9 g/dL (12.0-16.0); LYMPHOCYTES % 17.5 % (20.0-50.0); MEAN CORPUSCULAR HEMOGLOBIN 32.3 pg (28.0-32.0); MEAN PLATELET VOLUME 7.5 fl (7.4-10.4); MONOCYTES % 10.8 % (2.0-8.0); NEUTROPHILS % 71.2 % (40.0-76.0); PLATELET 235 x1000/uL (130-400); RED BLOOD CELL COUNT 3.37 mill/uL (4.2-5.4); RED CELL DISTRIBUTION WIDTH 14.9 % (11.6-14.6)
[2022-10-08] MEDS: AMLODIPINE 2.5MG TABLET GT SCH ×2 (08:37→20:30)
[2022-10-08] MEDS: POLYETHYLENE GLYCOL 3350 (17GM) 1 DOSE PACK PO SCH (08:37)
[2022-10-08] MEDS: PANTOPRAZOLE SODIUM 40 MG/VIAL IV SCH (08:41)
[2022-10-08] MEDS: LEVETIRACETAM 750 MG in SODIUM CHLORIDE 0.9% 100 ML IV SCH ×2 (09:37→20:29)
[2022-10-08] MEDS ORDERED: POTASSIUM CHLORIDE INJ 40 MEQ in DEXT 5% WATER 250 ML IV ONE (11:30)
[2022-10-08] MEDS: KCL 20MEQ/100ML X 2 FOR TOTAL KCL 40MEQ/200ML IV SCH ×2 (12:03→14:10)
[2022-10-08] MEDS ORDERED: HYDRALAZINE 20MG/ML VIAL IV PRN (13:30)
[2022-10-08] MEDS ORDERED: HYDRALAZINE 20MG/ML VIAL IV SCH (14:00)
[2022-10-08] MEDS: CLONIDINE 0.1MG TABLET NG SCH ×2 (14:11→20:31)
[2022-10-08] MEDS: ENOXAPARIN 40MG/0.4ML SYR SUBCUT SCH (18:03)
[2022-10-09] VITALS (13 sets, daily range): BP systolic 123–145; BP diastolic 68–97
[2022-10-09] MEDS: METOCLOPRAMIDE HCL 10MG/2ML VIAL IV SCH ×4 (00:49→17:55)
[2022-10-09] MEDS: DEXT 5%/LACTATED RINGERS 1,000 ML IV SCH ×3 (00:50→17:56)
[2022-10-09] MEDS: METOPROLOL TARTRATE 5MG/5ML VIAL IV SCH ×3 (01:08→17:56)
[2022-10-09] MEDS: IPRATROPIUM BROMIDE (0.02%) 0.5MG/2.5ML NEB HHN SCH ×4 (02:55→20:55)
[2022-10-09] MEDS: CLONIDINE 0.1MG TABLET NG SCH ×3 (05:57→21:08)
[2022-10-09 06:26] LABS: CHLORIDE 102 mEq/L (98-107)
[2022-10-09 06:39] LABS: BASOPHILS % 0.6 % (0.0-2.0); EOSINOPHILS % 0.1 % (0.0-5.0); HEMATOCRIT. 30.7 % (36.0-48.0); HEMOGLOBIN. 10.7 g/dL (12.0-16.0); LYMPHOCYTES % 11.6 % (20.0-50.0); MEAN CORPUSCULAR HEMOGLOBIN 32.4 pg (28.0-32.0); MEAN CORPUSCULAR VOLUME 93.4 fL (81.0-99.0); MEAN PLATELET VOLUME 7.8 fl (7.4-10.4); MONOCYTES % 6.9 % (2.0-8.0); NEUTROPHILS % 80.8 % (40.0-76.0); PLATELET 249 x1000/uL (130-400); RED BLOOD CELL COUNT 3.29 mill/uL (4.2-5.4); RED CELL DISTRIBUTION WIDTH 14.7 % (11.6-14.6)
[2022-10-09] MEDS: PANTOPRAZOLE SODIUM 40 MG/VIAL IV SCH (09:44)
[2022-10-09] MEDS: LEVETIRACETAM 750 MG in SODIUM CHLORIDE 0.9% 100 ML IV SCH ×2 (09:44→21:07)
[2022-10-09] MEDS: POLYETHYLENE GLYCOL 3350 (17GM) 1 DOSE PACK PO SCH (09:45)
[2022-10-09] MEDS: AMLODIPINE 2.5MG TABLET GT SCH ×2 (09:46→21:07)
[2022-10-09] MEDS ORDERED: MENTHOL/LANOLIN/CALAMINE/ZN OX OINT 71GM TOP PRN (13:00)
[2022-10-09] MEDS: ENOXAPARIN 40MG/0.4ML SYR SUBCUT SCH (17:55)
[2022-10-10] VITALS (17 sets, daily range): BP systolic 129–156; BP diastolic 70–104
[2022-10-10] MEDS: METOPROLOL TARTRATE 5MG/5ML VIAL IV SCH ×3 (00:51→16:14)
[2022-10-10] MEDS: METOCLOPRAMIDE HCL 10MG/2ML VIAL IV SCH ×4 (00:51→16:15)
[2022-10-10] MEDS: IPRATROPIUM BROMIDE (0.02%) 0.5MG/2.5ML NEB HHN SCH ×4 (02:04→20:55)
[2022-10-10] MEDS: CLONIDINE 0.1MG TABLET NG SCH ×3 (06:06→22:25)
[2022-10-10] MEDS: POLYETHYLENE GLYCOL 3350 (17GM) 1 DOSE PACK PO SCH (09:52)
[2022-10-10] MEDS: LEVETIRACETAM 750 MG in SODIUM CHLORIDE 0.9% 100 ML IV SCH ×2 (09:52→22:25)
[2022-10-10] MEDS: PANTOPRAZOLE SODIUM 40 MG/VIAL IV SCH (09:53)
[2022-10-10] MEDS: AMLODIPINE 2.5MG TABLET GT SCH ×2 (09:54→22:25)
[2022-10-10] MEDS: ENOXAPARIN 40MG/0.4ML SYR SUBCUT SCH (16:15)
[2022-10-10] MEDS ORDERED: ENOXAPARIN 40MG/0.4ML SYR SUBCUT SCH (18:00)
[2022-10-10] MEDS: DEXT 5%/LACTATED RINGERS 1,000 ML IV SCH (22:25)
[2022-10-11] VITALS: BP 143/84
[2022-10-11 01:00] VITALS: BP 148/90
[2022-10-11] MEDS: METOCLOPRAMIDE HCL 10MG/2ML VIAL IV SCH (01:40)
[2022-10-11] MEDS: METOPROLOL TARTRATE 5MG/5ML VIAL IV SCH (01:41)
[2022-10-11 02:00] VITALS: BP 143/97
[2022-10-11 02:51] VITALS: BP 137/82
[2022-10-11 03:00] VITALS: BP 137/82
== END 2022-10-11 04:00 | disposition short-term general hospital (02) | DRG 5 ==
LOC: ER 01:01 → MICUNO 02:14 → ENRESERV 06:26 → MICUNO 12:50 → 5EST 09-24 11:57
PROVIDERS: ADMIT Family Medicine Adult Medicine; ATTEND Family Medicine Adult Medicine
PROC: 5A1955Z Respiratory Ventilation, Greater than 96 Consecutive Hours (ICD-10-PCS; principal; 2022-09-09)
PROC: 0BH17EZ Insertion of Endotracheal Airway into Trachea, Via Natural or Artificial Opening (ICD-10-PCS; 2022-09-09)
PROC: 05H633Z Insertion of Infusion Device into Left Subclavian Vein, Percutaneous Approach (ICD-10-PCS; 2022-09-09)
PROC: 02HV33Z Insertion of Infusion Device into Superior Vena Cava, Percutaneous Approach (ICD-10-PCS; 2022-09-11)
PROC: B548ZZA Ultrasonography of Superior Vena Cava, Guidance (ICD-10-PCS; 2022-09-11)
PROC: 4A00X4Z Measurement of Central Nervous Electrical Activity, External Approach (ICD-10-PCS; 2022-09-17)
PROC: 0B110F4 Bypass Trachea to Cutaneous with Tracheostomy Device, Open Approach (ICD-10-PCS; 2022-09-23)
PROC: 0DP67UZ Removal of Feeding Device from Stomach, Via Natural or Artificial Opening (ICD-10-PCS; 2022-09-28)
DX: A41.52 Sepsis due to Pseudomonas (principal); R65.21 Severe sepsis with septic shock; G40.919 Epilepsy, unspecified, intractable, without status epilepticus; E43 Unspecified severe protein-calorie malnutrition; J15.1 Pneumonia due to Pseudomonas; D69.6 Thrombocytopenia, unspecified; J96.01 Acute respiratory failure with hypoxia; E87.0 Hyperosmolality and hypernatremia; Z20.822 Contact with and (suspected) exposure to COVID-19; E83.39 Other disorders of phosphorus metabolism; E87.1 Hypo-osmolality and hyponatremia; E87.6 Hypokalemia; G80.9 Cerebral palsy, unspecified; E83.42 Hypomagnesemia; D64.9 Anemia, unspecified; M41.9 Scoliosis, unspecified; E87.8 Other disorders of electrolyte and fluid balance, not elsewhere classified; I10 Essential (primary) hypertension; J45.909 Unspecified asthma, uncomplicated; I27.20 Pulmonary hypertension, unspecified; K56.7 Ileus, unspecified; K94.23 Gastrostomy malfunction; R74.01 Elevation of levels of liver transaminase levels; N39.0 Urinary tract infection, site not specified; E88.09 Other disorders of plasma-protein metabolism, not elsewhere classified; R13.10 Dysphagia, unspecified; R73.9 Hyperglycemia, unspecified; I08.1 Rheumatic disorders of both mitral and tricuspid valves; Z74.01 Bed confinement status; Z68.42 Body mass index [BMI] 45.0-49.9, adult; Z79.899 Other long term (current) drug therapy; Z68.41 Body mass index [BMI] 40.0-44.9, adult; Z99.11 Dependence on respirator [ventilator] status
CPT/HCPCS: 31500; 36415; 36573; 36600; 71045; 71275; 74018; 76700; 78580; 80048; 80053; 80061; 80076; 80202; 81003; 82375; 82542; 82607; 82728; 82746; 82805; 82962; 83036; 83540; 83550; 83605; 83735; 83880; 84100; 84145; 84439; 84443; 84478; 84703; 85025; 85027; 85044; 85379; 87070; 87077; 87186; 87426; 87804; 93005; 93306; 93970; 94003; 94640; 95816; 99285; A6261; C1725; C1893; C9113; J0360; J0690; J0692; J1200; J1650; J1953; J2060; J2270; J2370; J2543; J2704; J2765; J3370; J3475; J3480; J3490; J7030; J7040; J7042; J7050; J7060; J7121; Q9963; A4315; A5200